=== PATIENT | female | born 1985 ===

== ENCOUNTER 2018-10-06 17:47 | Emergency (ER) | payer OTHER ==
--- NOTE | 2018-10-06 18:22 | ED ---
Abdominal Pain HPI - General Source: patient Mode of arrival: ambulatory Limitations: no limitations <Candice Gutierres - Last Filed: 10/06/18 20:02> <Jonathan Hoskins - Last Filed: 10/06/18 20:08> - General Chief Complaint: Abdominal Pain Stated Complaint: 15 week , bleeding and pain Time Seen by Provider: 10/06/18 18:04 - History of Present Illness Initial Comments: Patient is a 33-year-old female here with her family with complaints of vaginal bleeding and pain. Patient is 15 weeks . Patient does not speak Chinese, translation is coming from her [id number] and . Patient stat es she woke up this morning with some mild lower abdominal pain, cramping and also had some light vaginal bleeding. 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 Patient admits to mild nausea but states she has had nausea throughout this . Patient denies chest pain, shortness of breath, vomiting, fever, chills. Patient does not have an OB at this time as [place] No other complaints at this time. (Candice Gutierres) - Related Data Allergies Allergy/AdvReac Type Severity Reaction Status Date / Time No Known Allergies Allergy Verified 10/06/18 18:06 Review of Systems ROS Other: All systems not noted in ROS Statement are negative. <Candice Gutierres - Last Filed: 10/06/18 20:02> ROS Other: All systems not noted in ROS Statement are negative. <Jonathan Hoskins - Last Filed: 10/06/18 20:08> ROS Statement: Those systems with pertinent positive or pertinent negative responses have been documented in the HPI. Past Medical History Past Medical History: No Reported History History of Any Multi-Drug Resistant Organisms: None Reported Past Surgical History: No Surgical Hx Reported Past Psychological History: No Psychological Hx Reported Smoking Status: Never smoker Past Alcohol Use History: None Reported Past Drug Use History: None Reported <Candice Gutierres - Last Filed: 10/06/18 20:02> General Exam Limitations: no limitations <Candice Gutierres - Last Filed: 10/06/18 20:02> - General Exam Comments Initial Comments: GENERAL: Well-appearing, well-nourished and in no acute distress. HEAD: Atraumatic, normocephalic. EYES: Pupils equal round and reactive to light, extraocular movements intact, sclera anicteric, conjunctiva are normal. ENT: Nares patent, oropharynx clear without exudates. Moist mucous membranes. NECK: Normal range of motion, supple without lymphadenopathy or JVD. LUNGS: Breath sounds clear to auscultation bilaterally and equal. No wheezes rales or rhonchi. HEART: Regular rate and rhythm without murmurs, rubs or gallops. ABDOMEN: Mild tenderness suprapubic area. Soft, normoactive bowel sounds. No guarding, no rebound. No masses appreciated. No CVA tenderness. : Deferred EXTREMITIES: Normal range of motion, no pitting or edema. No clubbing or cy anosis. NEUROLOGICAL: Cranial nerves II through XII grossly intact. Normal speech, normal gait. PSYCH: Normal mood, normal affect. SKIN: Warm, Dry, normal turgor, no rashes or lesions noted. (Candice Gutierres) Course Vital Signs 10/06/18 18:06 Temperature 98.1 F Pulse Rate 82 Respiratory 18 Rate Blood Pressure 114/74 O2 Sat by Pulse 98 Oximetry Medical Decision Making - Lab Data Result diagrams: 10/06/18 18:29 10/06/18 18:29 <Candice Gutierres - Last Filed: 10/06/18 20:02> - Lab Data Result diagrams: 10/06/18 18:29 10/06/18 18:29 <Jonathan Hoskins - Last Filed: 10/06/18 20:08> - Medical Decision Making Patient is a 33-year-old female here with her and [id number] with complaints of vaginal bleeding and lower abdominal pain since this morning. Patient states she has 15 weeks . Patient does not speak Chinese therefore and [id number] translating. Patient does not have an OB right now as she [place]. Patient has history of 3 prior miscarriages and 1 son that is here with her today. Patient states she has been having nausea throughout her . Patient denies fever, chills, vomiting. On exam patient has lower abdominal tenderness mostly over suprapubic area. CBC, CMP are within normal limits. HCG Quant is only 7,164. Rh+. OB ultrasound reveals intrauterine demise at approximately 11 weeks gestation. No heart tones detected. Case was discussed with Dr. Hoskins who discussed case with Dr. Marquez. Patient will be given referral information will follow up with Dr. Marquez/Dr. Hart on Sunday. Return parameters were discussed with patient and the family and they verbalized understanding. Patient be discharged home. (Candice Gutierres) I personally spoke with Dr. Marquez who agrees with current management. Dr. Marquez confirmed that the patient is established with Dr. Hart, and she instructed that the patient call the office tomorrow for an expedited follow up appointment. the patient is HD stable, return parameters were discussed and understood. (Jonathan Hoskins) - Lab Data Lab Results 10/06/18 10/06/18 10/06/18 Range/Units 18:29 18:29 18:29 WBC 6.4 (3.8-10.6) k/uL RBC 3.80 (3.80-5.40) m/uL Hgb 11.7 (11.4-16.0) gm/dL Hct 33.5 L (34.0-46.0) % MCV 88.2 (80.0-100.0) fL MCH 30.6 (25.0-35.0) pg MCHC 34.7 (31.0-37.0) g/dL RDW 13.0 (11.5-15.5) % Plt Count 230 (150-450) k/uL Neutrophils % 63 % Lymphocytes % 30 % Monocytes % 4 % Eosinophils % 1 % Basophils % 0 % Neutrophils # 4.0 (1.3-7.7) k/uL Lymphocytes # 1.9 (1.0-4.8) k/uL Monocytes # 0.3 (0-1.0) k/uL Eosinophils # 0.1 (0-0.7) k/uL Basophils # 0.0 (0-0.2) k/uL Sodium 140 (137-145) mmol/L Potassium 4.1 (3.5-5.1) mmol/L Chloride 109 H (98-107) mmol/L Carbon Dioxide 21 L (22-30) mmol/L Anion Gap 10 mmol/L BUN 7 (7-17) mg/dL Creatinine 0.38 L (0.52-1.04) mg/dL Est GFR (CKD-EPI)AfAm >90 (>60 ml/min/1.73 sqM) Est GFR (CKD-EPI)NonAf >90 (>60 ml/min/1.73 sqM) Glucose 87 (74-99) mg/dL Calcium 9.7 (8.4-10.2) mg/dL Total Bilirubin 0.8 (0.2-1.3) mg/dL AST 34 (14-36) U/L ALT 29 (9-52) U/L Alkaline Phosphatase 27 L (38-126) U/L Total Protein 7.0 (6.3-8.2) g/dL Albumin 4.3 (3.5-5.0) g/dL HCG, Quant 7164.7 mIU/mL Blood Type A Positive Blood Type Recheck ABR ONLY Disposition Is patient prescribed a controlled substance at d/c from ED?: No <Candice Gutierres - Last Filed: 10/06/18 20:02> <Jonathan Hoskins - Last Filed: 10/06/18 20:08> Clinical Impression: demise, Abdominal cramping, Vaginal bleeding Disposition: HOME SELF-CARE Condition: Stable Instructions (If sedation given, give patient instructions): Miscarriage (ED) Additional Instructions: Please return to the Emergency Department if symptoms worsen or any other concerns. Follow up with INFORMATION TECHNOLOGY SECURITY MANAGER as discussed. Referrals: Tsering Hart DO [Doctor of Osteopathic Medicine] - 1-2 days Beata Marquez DO [Doctor of Osteopathic Medicine] - 1-2 days
[2018-10-06 18:38] LABS: Basophils % (A) 0 %; Eosinophils # (A) 0.1 k/uL (0-0.7); Eosinophils % (A) 1 %; HCT 33.5 % (34.0-46.0); HGB 11.7 gm/dL (11.4-16.0); Lymphocytes # (A) 1.9 k/uL (1.0-4.8); Lymphocytes % (A) 30 %; MCH 30.6 pg (25.0-35.0); MCHC 34.7 g/dL (31.0-37.0); MCV 88.2 fL (80.0-100.0); Mean Platelet Volume 7.3; Monocytes # (A) 0.3 k/uL (0-1.0); Monocytes % (A) 4 %; Neutrophils % (A) 63 %; Platelet Count 230 k/uL (150-450); WBC 6.4 k/uL (3.8-10.6)
[2018-10-06 18:47] LABS: ALT 29 U/L (9-52); AST 34 U/L (14-36); African American GFR (CKD) >90 (>60 ml/min/1.73 sqM); Albumin 4.3 g/dL (3.5-5.0); Alkaline Phosphatase 27 U/L (38-126); Anion Gap 10 mmol/L; Blood Urea Nitrogen 7 mg/dL (7-17); Calcium 9.7 mg/dL (8.4-10.2); Carbon Dioxide 21 mmol/L (22-30); Chloride 109 mmol/L (98-107); Glucose 87 mg/dL (74-99); Potassium 4.1 mmol/L (3.5-5.1); Sodium 140 mmol/L (137-145); Total Bilirubin 0.8 mg/dL (0.2-1.3)
[2018-10-06 19:03] LABS: HCG,Quantitative Serum 7164.7 mIU/mL
--- NOTE | 2018-10-06 19:09 | US ---
EXAMINATION TYPE: Transabdominal DATE OF EXAM: 10/06/2018 7:00 PM COMPARISON: NONE CLINICAL HISTORY: Pain, bleeding Pt states LLQ pain and light vaginal bleeding, pt states h/o miscar riage x 3 EXAM PERFORMED: Transabdominal (TA) EXAM MEASUREMENTS: GESTATIONAL AGE / DATING Physician Established: (14 weeks/1 days) EDC: 04/05/2019 Dates by LMP: Unknown Dates by First Scan: No prior Dates by Current Scan: (11 weeks/5 days) EDC: 04/22/2019 MATERNAL ANATOMY Uterus: 14.6 x 3.9 x 9.6 cm Right Ovary: 2.9 x 1.5 x 2.1 cm Left Ovary: 3.2 x 2.4 x 3.5 cm Post CDS / Adnexa: wnl Presence of free fluid: No Presence of corpus luteal cyst: Left Ovary= 2.0 x 1.9 x 1.9 cm Presence of subchorionic bleed: No GESTATION / SURVEY CRL: 4.2 cm (11 weeks/1 days) FL: 0.7 cm 12weeks/ 1 day Heart Rate: Not detected IUP: Demise No heart tones detected by color or pulsed doppler consistent with probable demise IMPRESSION: Intrauterine demise at approximately 11 weeks gestation.
[2018-10-06 20:16] LABS: Amorphous Sediment,Urine Rare /hpf; Appearance,Urine Cloudy (Clear); Bilirubin,Urine Negative (Negative); Blood,Urine Trace (Negative); Color,Urine Light Yellow; Glucose,Urine (UA) Negative (Negative); Ketones,Urine Negative (Negative); Leukocyte Esterase,Urine Negative (Negative); Mucus,Urine Rare /hpf; Nitrite,Urine Negative (Negative); PH, Urine 7.5 (5.0-8.0); Protein,Urine Negative (Negative); RBC,Urine 1 /hpf (0-5); Specific Gravity,Urine 1.008 (1.001-1.035); Squamous Epithelial Cell,Urine 1 /hpf (0-4); Urobilinogen,Urine <2.0 mg/dL (<2.0)
[2018-10-06 20:26] VITALS: BP 120/81; PULSE 69; RESP 16; TEMP 98
== END 2018-10-06 20:24 | disposition home or self-care (01) ==
LOC: EC 17:47
DX: O02.1 Missed abortion (principal); R11.0 Nausea; R10.30 Lower abdominal pain, unspecified; N93.9 Abnormal uterine and vaginal bleeding, unspecified
CPT/HCPCS: 36415; 76801; 80053; 81001; 84702; 85025; 86900; 86901; 99284

== ENCOUNTER 2018-10-11 06:08 | Day surgery (SDC) | payer OTHER ==
[~2018-10-11 06:08] MED LIST: DEXAMETHASONE SOD PHOSPHATE 10 MG/ML 1 ML VIAL IV ONE; HYDROmorphone 0.5 MG/0.5 ML SYRINGE IVP PRN; LACTATED RINGERS 1,000 ML IV SCH; MIDAZOLAM 2 MG/2 ML VIAL IV PRN; ONDANSETRON 4 MG/2 ML VIAL IVP ONE; Pre Op ABX Message 1 EACH MISC MISCELLANE ONE; SCOPOLAMINE 1.5MG/72HR PATCH TRANSDERM ONE
[2018-10-11] MEDS ORDERED: LIDOCAINE 1% 20 ML VIAL (10MG/ML) FOR IV START INTRADERMA ONE (06:30)
[2018-10-11 06:32] VITALS: RESP 16
--- NOTE | 2018-10-11 06:52 | P.HPOB ---
History of Present Illness H&P Date: 10/11/18 Chief Complaint: incomplete 33 year old presents for suction D&C with an 11 week incomplete . She has had some minor bleeding since last week and 2 ultrasounds confirmed no heart activity. Review of Systems All systems: negative Constitutional: Denies chills, Denies fever Eyes: denies blurred vision, denies pain Ears, nose, mouth and throat: Denies headache, Denies sore throat Cardiovascular: Denies chest pain, Denies shortness of breath Respiratory: Denies cough Gastrointestinal: Denies abdominal pain, Denies diarrhea, Denies nausea, Denies vomiting Genitourinary: Denies dysuria, Denies hematuria Musculoskeletal: Denies myalgias Integumentary: Denies pruritus, Denies rash Neurological: Denies numbness, Denies weakness Psychiatric: Denies anxiety, Denies depression Endocrine: Denies fatigue, Denies weight change Past Medical History Past Medical History: No Reported History Additional Past Medical History / Comment(s): OB history: first was a full term. Second was SAB at 8 weeks. Third was an SAB at 20 weeks. Fourth was an SAB at 6 weeks. This is her fifth . History of Any Multi-Drug Resistant Organisms: None Reported Past Surgical History: Section Past Anesthesia/Blood Transfusion Reactions: No Reported Reaction Smoking Status: Never smoker - Past Family History Mother Family Medical History: No Reported History Medications and Allergies Home Medications Medication Instructions Recorded Confirmed Type No Known Home Medications 10/10/18 10/10/18 History Allergies Allergy/AdvReac Type Severity Reaction Status Date / Time No Known Allergies Allergy Verified 10/10/18 11:28 Exam Osteopathic Statement: *. No significant issues noted on an osteopathic structural exam other than those noted in the History and Physical/Consult. Vital Signs Temp Pulse Resp BP Pulse Ox 10/11/18 06:31 98.3 F 81 16 99/56 100 Intake and Output 10/10/18 10/10/18 10/11/18 14:59 22:59 06:59 Other: Weight 0 g Heart: Regular rate and rhythm Lungs: Clear to auscultation bilaterally Abdomen: Soft, nontender Extremities: Negative Homans sign Assessment and Plan (1) Incomplete Current Visit: Yes Status: Acute Code(s): O03.4 - INCOMPLETE SPONTANEOUS WITHOUT COMPLICATION SNOMED Code(s): 454286075 Plan: 1. Suction D&C ; I will send the tissue off for chromosome analysis
[2018-10-11] MEDS ORDERED: KETOROLAC 30 MG/ML 1 ML VIAL ONE (07:15)
[2018-10-11] MEDS ORDERED: PROPOFOL 10 MG/ML 20 ML VIAL IV ONE (07:15)
[2018-10-11] MEDS ORDERED: fentaNYL (PF) 50 MCG/ML 2 ML AMP ONE (07:15)
[2018-10-11] MEDS ORDERED: LIDOCAINE 1% INJ 10MG/ML (20 ML MDV) ONE (07:15)
[2018-10-11 08:06] VITALS: TEMP 97.3
--- NOTE | 2018-10-11 08:12 | P.OP ---
Date of Procedure: 10/11/18 Preoperative Diagnosis: 1. incomplete Postoperative Diagnosis: 1. incomplete Procedure(s) Performed: suction D&C Anesthesia: MAC Surgeon: Tsering Hart Estimated Blood Loss (ml): 400 IV fluids (ml): 1,000 Urine output (ml): 100 Pathology: other (products of conception-sent for chormosome studies) Condition: stable Disposition: PACU Operative Findings: large amount of products of conception removed. Uterus 10-12 week size;retroverted Description of Procedure: Patient is taken the operating room where general anesthesia was obtained without difficulty. She is prepped and draped in normal sterile fashion dorsal lithotomy position, legs placed in the candycane stirrups. Bladder drained of all urine. Weighted speculum placed in the vagina and the anterior lip the cervix was grasped with a single-tooth tenaculum. The cervix was dilated to #12 Hegar dilator. The #12 curved suction curet was introduced into the uterus and passed several times to remove tissue and blood. There was a large piece of placental tissue at the opening that was removed with a ring forcep. Sharp curet was gently used to ensure all tissue had been removed. The contour of the uterus felt smooth. Suction curet was passed several more times to remove more blood. Pitocin was added to IV bag to also help with hemostasis. All instruments removed from the vagina. Patient tolerated procedure well, sponge and instrument counts correct 2. She was taken to recovery in stable condition.
[2018-10-11] MEDS ORDERED: LACTATED RINGERS IV ONE ×2 (08:13)
[2018-10-11] MEDS ORDERED: OXYTOCIN IV ONE ×2 (08:13)
[2018-10-11 10:02] VITALS: PULSE 64
[2018-10-11 10:59] VITALS: BP 113/70
== END 2018-10-11 11:02 | disposition home or self-care (01) ==
LOC: OR 06:08
PROVIDERS: ATTEND Obstetrics & Gynecology
DX: O02.1 Missed abortion (principal); Z87.59 Personal history of other complications of pregnancy, childbirth and the puerperium; Z79.82 Long term (current) use of aspirin
CPT/HCPCS: 59820; 88305; J1100; J2590; J2405; J2001; J3010; J1885; J2704

== ENCOUNTER → 2018-12-31 | Outpatient (CLI) | payer OTHER ==
[2018-12-31 16:49] LABS: Basophils % (A) 0 %; Eosinophils # (A) 0.1 k/uL (0-0.7); Eosinophils % (A) 1 %; HCT 36.4 % (34.0-46.0); HGB 12.4 gm/dL (11.4-16.0); Lymphocytes % (A) 35 %; MCH 30.5 pg (25.0-35.0); MCHC 33.9 g/dL (31.0-37.0); Mean Platelet Volume 7.4; Monocytes # (A) 0.2 k/uL (0-1.0); Monocytes % (A) 3 %; Neutrophils # (A) 3.2 k/uL (1.3-7.7); Neutrophils % (A) 57 %; Platelet Count 284 k/uL (150-450); RBC 4.05 m/uL (3.80-5.40); RDW 11.8 % (11.5-15.5); WBC 5.5 k/uL (3.8-10.6)
[2018-12-31 18:02] LABS: Amorphous Sediment,Urine Rare /hpf; Appearance,Urine Cloudy (Clear); Bacteria,Urine Moderate /hpf; Bilirubin,Urine Negative (Negative); Blood,Urine Small (Negative); Color,Urine Light Yellow; Glucose,Urine (UA) Negative (Negative); Ketones,Urine Negative (Negative); Leukocyte Esterase,Urine Small (Negative); Mucus,Urine Occasional /hpf; Nitrite,Urine Negative (Negative); PH, Urine 5.5 (5.0-8.0); Protein,Urine Negative (Negative); RBC,Urine 2 /hpf (0-5); Specific Gravity,Urine 1.006 (1.001-1.035); Sperm,Urine Rare /hpf; Squamous Epithelial Cell,Urine 14 /hpf (0-4); Urobilinogen,Urine <2.0 mg/dL (<2.0); WBC,Urine 4 /hpf (0-5)
[2018-12-31 20:57] LABS: Erythrocyte Sedimentation Rate 10 mm/hr (0-20)
[2019-01-01 00:17] LABS: ALT 22 U/L (8-44); AST 26 U/L (13-35); African American GFR (CKD) 136.9 (60.0-200.0); Alkaline Phosphatase 41 U/L (41-126); C Reactive Protein <0.4 mg/dL (0.0-0.8); Calcium 9.6 mg/dL (8.7-10.3); Carbon Dioxide 25.3 mmol/L (21.6-31.8); Chloride 107 mmol/L (96-109); Chol/HDL Ratio 3.17; Cholesterol 200 mg/dL (0-200); Creatine Kinase 52 U/L (26-186); Glucose 89 mg/dL (70-110); Phosphorus 3.1 mg/dL (2.4-5.1); Potassium 4.2 mmol/L (3.5-5.5); Sodium 139 mmol/L (135-145); Total Protein 6.6 g/dL (6.2-8.2); Triglycerides <50.0 mg/dL (0.0-149.0)
[2019-01-01 01:02] LABS: DNA Double-Stranded NEGATIVE (NEGATIVE)
[2019-01-01 01:12] LABS: Hemoglobin A1C 4.8 % (4.0-6.0)
[2019-01-01 01:46] LABS: Rheumatoid Factor 7 IU/mL (0-15)
[2019-01-01 01:58] LABS: Vitamin D 25 Hydroxy 8.6 ng/mL (30.0-100.0)
[2019-01-01 02:15] LABS: Hepatitis B Surface Antigen Non-Reactive (Non-Reactive); Hepatitis C IgG Antibody Non-Reactive (Non-Reactive)
[2019-01-01 02:16] LABS: Hepatitis A Antibody IgM Non-Reactive (Non-Reactive); Hepatitis B Core IgM Non-Reactive (Non-Reactive)
== END | disposition home or self-care (01) ==
LOC: LABWHC1 16:14
PROVIDERS: ATTEND Internal Medicine
DX: O03.9 Complete or unspecified spontaneous abortion without complication (principal); D64.9 Anemia, unspecified; E78.5 Hyperlipidemia, unspecified; D89.89 Other specified disorders involving the immune mechanism, not elsewhere classified
CPT/HCPCS: 36415; 80053; 80061; 80074; 81001; 82306; 82550; 82607; 83036; 83735; 84100; 84439; 84443; 85025; 85652; 86038; 86140; 86225; 86431; 87338

== ENCOUNTER → 2019-01-16 | Outpatient (CLI) | payer OTHER ==
--- NOTE | 2019-01-16 09:42 | XR ---
EXAMINATION TYPE: XR thoracic spine complete DATE OF EXAM: 01/16/2019 COMPARISON: NONE HISTORY: Pain Alignment is anatomic. There is no compression deformities. Vertebral body height and disc interspa chuck are maintained. IMPRESSION: 1. No acute abnormality.
== END | disposition home or self-care (01) ==
LOC: RADXRMAIN 08:43
PROVIDERS: ATTEND Internal Medicine
DX: M54.6 Pain in thoracic spine (principal); I95.9 Hypotension, unspecified; N94.6 Dysmenorrhea, unspecified
CPT/HCPCS: 72072

== ENCOUNTER → 2019-02-06 | Outpatient (CLI) | payer OTHER | END | disposition home or self-care (01) | LOC: LABWHC1 08:59 | PROVIDERS: ATTEND Internal Medicine | DX: O03.9 Complete or unspecified spontaneous abortion without complication (principal) | CPT/HCPCS: 86900; 86901; 87338 ==

== ENCOUNTER → 2019-03-21 | Outpatient (CLI) | payer OTHER ==
[2019-03-21 23:07] LABS: Luteinizing Hormone 4.8 mIU/mL; Prolactin 6.5 ng/mL (2.8-29.2)
[2019-03-24 04:28] LABS: Herpes simplex IgG II Ab 0.25 (< or = 0.90)
[2019-03-24 04:44] LABS: Herpes simplex I and/or II IgM 0.26 INDEX (<=0.90); Toxoplasma Antibody (IgM) <3.0 AU/mL (<8.0)
[2019-03-24 11:25] LABS: Act Protein C Resist Interp NEG
[2019-03-24 11:28] LABS: Anti-Thrombin III Activity 73 % (79-109)
[2019-03-24 11:30] LABS: Protein C (Activity) 99 % (71-138)
== END | disposition home or self-care (01) ==
LOC: LABWHC1 15:40
PROVIDERS: ATTEND Internal Medicine
DX: Z13.0 Encounter for screening for diseases of the blood and blood-forming organs and certain disorders involving the immune mechanism (principal); N97.9 Female infertility, unspecified; Z31.41 Encounter for fertility testing; Z87.59 Personal history of other complications of pregnancy, childbirth and the puerperium; Z13.228 Encounter for screening for other metabolic disorders
CPT/HCPCS: 36415; 81240; 83001; 83002; 83090; 84146; 85300; 85303; 85306; 85307; 86644; 86645; 86694; 86695; 86696; 86762; 86777; 86778

== ENCOUNTER → 2019-04-18 | Outpatient (CLI) | payer OTHER | END | disposition home or self-care (01) | LOC: LABWHC1 16:33 | PROVIDERS: ATTEND Internal Medicine | DX: Z13.0 Encounter for screening for diseases of the blood and blood-forming organs and certain disorders involving the immune mechanism (principal) | CPT/HCPCS: 36415; 85301 ==

== ENCOUNTER 2019-09-12 18:43 | Emergency (ER) | payer OTHER ==
[2019-09-12 19:06] VITALS: RESP 18
[2019-09-12 20:28] LABS: Basophils % (A) 0 %; Eosinophils # (A) 0.1 k/uL (0-0.7); Eosinophils % (A) 1 %; HCT 35.9 % (34.0-46.0); HGB 12.4 gm/dL (11.4-16.0); Lymphocytes # (A) 1.9 k/uL (1.0-4.8); Lymphocytes % (A) 20 %; MCH 31.4 pg (25.0-35.0); MCHC 34.5 g/dL (31.0-37.0); MCV 91.1 fL (80.0-100.0); Mean Platelet Volume 8.1; Monocytes # (A) 0.3 k/uL (0-1.0); Monocytes % (A) 3 %; Neutrophils # (A) 7.2 k/uL (1.3-7.7); Neutrophils % (A) 75 %; Platelet Count 250 k/uL (150-450); RBC 3.94 m/uL (3.80-5.40); WBC 9.7 k/uL (3.8-10.6)
[2019-09-12 20:30] LABS: ALT 22 U/L (4-34); AST 28 U/L (14-36); African American GFR (CKD) >90 (>60 ml/min/1.73 sqM); Albumin 4.4 g/dL (3.5-5.0); Alkaline Phosphatase 40 U/L (38-126); Anion Gap 7 mmol/L; Blood Urea Nitrogen 9 mg/dL (7-17); Calcium 9.6 mg/dL (8.4-10.2); Carbon Dioxide 23 mmol/L (22-30); Chloride 105 mmol/L (98-107); Glucose 90 mg/dL (74-99); Non-African American GFR(CKD) >90 (>60 ml/min/1.73 sqM); Potassium 4.3 mmol/L (3.5-5.1); Sodium 135 mmol/L (137-145); Total Bilirubin 0.6 mg/dL (0.2-1.3); Total Protein 7.3 g/dL (6.3-8.2)
[2019-09-12 20:51] LABS: Appearance,Urine Cloudy (Clear); Bacteria,Urine Many /hpf; Bilirubin,Urine Negative (Negative); Blood,Urine Small (Negative); Color,Urine Light Yellow; Glucose,Urine (UA) Negative (Negative); Ketones,Urine 1+ (Negative); Leukocyte Esterase,Urine Trace (Negative); Mucus,Urine Rare /hpf; Nitrite,Urine Negative (Negative); PH, Urine 5.5 (5.0-8.0); Protein,Urine Negative (Negative); RBC,Urine 4 /hpf (0-5); Specific Gravity,Urine 1.007 (1.001-1.035); Squamous Epithelial Cell,Urine 4 /hpf (0-4); Urobilinogen,Urine <2.0 mg/dL (<2.0); WBC,Urine 6 /hpf (0-5)
--- NOTE | 2019-09-12 20:51 | US ---
EXAMINATION TYPE: Transabdominal DATE OF EXAM: 09/12/2019 8:35 PM COMPARISON: NONE CLINICAL HISTORY: pain. No bleeding, back pain EXAM PERFORMED: Transabdominal (TA) EXAM MEASUREMENTS: GESTATIONAL AGE / DATING Physician Established: Not yet established Dates by LMP: (9 weeks/4 days) EDC: 04/12/20 Dates by First Scan: No previous this is first scan Dates by Current Scan for: (9 weeks/3 days) EDC: 04/13/20 MATERNAL ANATOMY Uterus: 9.6 x 6.3 x 6.3cm Right Ovary: 3.1 x 1.6 x 1.6cm Left Ovary: 3.9 x 2.3 x 2.3cm Post CDS / Adnexa: trace amount of free fluid posterior cul-de-sac Presence of free fluid: yes Presence of corpus luteal cyst: yes, hypoechoic area left ovary = 1.9 x 1.8 x 1.8cm and 1.9 x 1.2 x 1.2cm right ovary GESTATION / SURVEY CRL: 2.6cm (9 weeks/3 days) Yolk Sac (normal less than 6mm): 0.3cm Heart Rate: 168 bpm Rhythm: Normal IUP: Viable IUP Date of LMP: 07/07/19 Beta HcG (if available): Not available at this time Single viable IUP 9wks/3days with ASHANTI of 04/13/20. Trace free fluid posterior cul-de-sac. Hypoechoic area bilateral ovaries IMPRESSION: The ultrasound gestational age is 9 weeks and 3 days. No complicating process seen.
[2019-09-12] MEDS ORDERED: CEPHALEXIN 500MG STARTER PACK 4 CAP BTL PO STA (21:44)
--- NOTE | 2019-09-12 21:45 | ED ---
General Adult HPI - General Chief complaint: Recheck/Abnormal Lab/Rx Stated complaint: 8-10 weeks , worried about baby Time Seen by Provider: 09/12/19 19:27 Source: patient, RN notes reviewed, old records reviewed Mode of arrival: ambulatory Limitations: language barrier - History of Present Illness Initial comments: 34 old female patient presents ED for evaluation. Patient reports that she had one live or since then has had 4 miscarriages. She states that she is now again approximately 9 weeks and is following up in [facility] however she feels as if last few days her abdomen has not been as large as it was before. She is concerned about the baby. She denies any abdominal pain or vaginal bleeding. She denies any other complaints. Pt states that she is taking previtamins. Systemic: Pt denies fatigue, fever/chills, rash. Pt denies weakness, night sweats, weight loss. Neuro: Pt denies headache, visual disturbances, syncope or pre-syncope. HEENT: Pt denies ocular discharge or irritation, otalgia, rhinorrhea, phar yngitis or notable lymphadenopathy. Cardiopulmonary: Pt denies chest pain, SOB, heart palpitations, dyspnea on exertion. Abdominal/GI: Pt denies abdominal pain, n/v/d. : Pt denies dysuria, burning w/ urination, frequency/urgency. Denies new onset urinary or bowel incontinence. MSK: Pt denies myalgia, loss of strength or function in extremities. Neuro: Pt denies new onset weakness, paresthesias. - Related Data Previous Rx's Medication Instructions Recorded Ibuprofen [Motrin] 600 mg PO Q6HR PRN #30 tab 10/11/18 Cephalexin [Keflex] 500 mg PO Q12HR 7 Days #14 cap 09/12/19 Allergies Allergy/AdvReac Type Severity Reaction Status Date / Time No Known Allergies Allergy Verified 09/12/19 19:06 Review of Systems ROS Statement: Those systems with pertinent positive or pertinent negative responses have been documented in the HPI. ROS Other: All systems not noted in ROS Statement are negative. Past Medical History Past Medical History: No Reported History Additional Past Medical History / Comment(s): OB history: first was a full term. Second was SAB at 8 weeks. Third was an SAB at 20 weeks. Fourth was an SAB at 6 weeks. This is her fifth . History of Any Multi-Drug Resistant Organisms: None Reported Past Surgical History: Section Past Anesthesia/Blood Transfusion Reactions: No Reported Reaction Past Psychological History: No Psychological Hx Reported Smoking Status: Never smoker - Past Family History Mother Family Medical History: No Reported History General Exam - General Exam Comments Initial Comments: Constitutional: NAD, AOX3, Pt has pleasant affect. HEENT: NC/AT, trachea midline, neck supple. External ears appear normal, without discharge. Mucous membranes moist. Eyes PERRLA, EOM intact. There is no scleral icterus. No pallor noted. Cardiopulmonary: RRR, no murmurs, rubs or gallops, no JVD noted. Lungs CTAB in anterior and posterior morgan. No peripheral edema. Abdominal exam: Abdomen soft and non-distended. Abdomen non-tender to palpation in all 4 quadrants. Bowel sounds active in LLQ. No hepatosplenomegaly. No ecchymosis Neuro: CN II-XII grossly intact. No nuchal rigidity. No raccon eyes, no palomares sign. No cervical spinal tenderness. MSK: Full active ROM in upper and lower extremities, 5/5 stregnth. Limitations: language barrier Course Vital Signs 09/12/19 19:00 Temperature 98.1 F Pulse Rate 76 Respiratory 18 Rate Blood Pressure 101/67 O2 Sat by Pulse 100 Oximetry Medical Decision Making - Medical Decision Making 34 old female patient presents ED for evaluation. Patient reports that she had one live or since then has had 4 miscarriages. She states that she is now again approximately 9 weeks and is following up in [facility] however she feels as if last few days her abdomen has not been as large as it was before. She is concerned about the baby. She denies any abdominal pain or vaginal bleeding. She denies any other complaints. Patient also had a stable, afebrile. Physical exam dentist acute pathology. Labs investigations were obtained CBC CMP is noncompressive. Blood type from 2019 is A+. UA doesn't display 1+ ketones, 6 white blood cells 4 red blood cells 4 squamous epithelial cells many bacteria. Patient is not complaining of any urinary changes however she'll be treated with Keflex for asymptomatic bacteriuria. Ultrasound displayed gestational age 9 weeks 3 days and no complicating process. Patient discharged will follow up with primary care provider and will return to ER if condition worsens. Case discussed with Dr. Ruelas. - Lab Data Result diagrams: 09/12/19 20:00 09/12/19 20:00 Lab Results 09/12/19 09/12/19 09/12/19 Range/Units 20:00 20:00 20:00 WBC 9.7 (3.8-10.6) k/uL RBC 3.94 (3.80-5.40) m/uL Hgb 12.4 (11.4-16.0) gm/dL Hct 35.9 (34.0-46.0) % MCV 91.1 (80.0-100.0) fL MCH 31.4 (25.0-35.0) pg MCHC 34.5 (31.0-37.0) g/dL RDW 12.0 (11.5-15.5) % Plt Count 250 (150-450) k/uL Neutrophils % 75 % Lymphocytes % 20 % Monocytes % 3 % Eosinophils % 1 % Basophils % 0 % Neutrophils # 7.2 (1.3-7.7) k/uL Lymphocytes # 1.9 (1.0-4.8) k/uL Monocytes # 0.3 (0-1.0) k/uL Eosinophils # 0.1 (0-0.7) k/uL Basophils # 0.0 (0-0.2) k/uL Sodium 135 L (137-145) mmol/L Potassium 4.3 (3.5-5.1) mmol/L Chloride 105 (98-107) mmol/L Carbon Dioxide 23 (22-30) mmol/L Anion Gap 7 mmol/L BUN 9 (7-17) mg/dL Creatinine 0.44 L (0.52-1.04) mg/dL Est GFR (CKD-EPI)AfAm >90 (>60 ml/min/1.73 sqM) Est GFR (CKD-EPI)NonAf >90 (>60 ml/min/1.73 sqM) Glucose 90 (74-99) mg/dL Calcium 9.6 (8.4-10.2) mg/dL Total Bilirubin 0.6 (0.2-1.3) mg/dL AST 28 (14-36) U/L ALT 22 (4-34) U/L Alkaline Phosphatase 40 (38-126) U/L Total Protein 7.3 (6.3-8.2) g/dL Albumin 4.4 (3.5-5.0) g/dL Urine Color Light Yellow Urine Appearance Cloudy H (Clear) Urine pH 5.5 (5.0-8.0) Ur Specific [place] 1.007 (1.001-1.035) Urine Protein Negative (Negative) Urine Glucose (UA) Negative (Negative) Urine Ketones 1+ H (Negative) Urine Blood Small H (Negative) Urine Nitrite Negative (Negative) Urine Bilirubin Negative (Negative) Urine Urobilinogen <2.0 (<2.0) mg/dL Ur Leukocyte Esterase Trace H (Negative) Urine RBC 4 (0-5) /hpf Urine WBC 6 H (0-5) /hpf Ur Squamous Epith Cells 4 (0-4) /hpf Urine Bacteria Many H (None) /hpf Urine Mucus Rare H (None) /hpf Disposition Clinical Impression: Asymptomatic bacteriuria during Disposition: HOME SELF-CARE Condition: Stable Instructions (If sedation given, give patient instructions): (ED) Additional Instructions: Take antibiotics as directed. Follow up with primary care provider and telescope operator tomorrow. Return to ER if condition worsens in any way. Prescriptions: Cephalexin [Keflex] 500 mg PO Q12HR 7 Days #14 cap Is patient prescribed a controlled substance at d/c from ED?: No Referrals: Choco Isbell MD [Primary Care Provider] - 1-2 days
[2019-09-12 21:52] VITALS: BP 105/62; PULSE 78; TEMP 97.9
[2019-09-15 13:58] LABS: N. gonorrhoeae,PCR Negative (Neg,Equiv); Neisseria Source Urine
== END 2019-09-12 21:52 | disposition home or self-care (01) ==
LOC: EC 18:43
DX: O98.811 Other maternal infectious and parasitic diseases complicating pregnancy, first trimester (principal); A49.9 Bacterial infection, unspecified; Z3A.09 9 weeks gestation of pregnancy; Z87.59 Personal history of other complications of pregnancy, childbirth and the puerperium
CPT/HCPCS: 36415; 76801; 80053; 81001; 84702; 85025; 87591; 99284

== ENCOUNTER 2019-12-03 21:03 | Outpatient (CLI) | payer OTHER ==
[2019-12-03 22:18] VITALS: BP 105/61; PULSE 85; RESP 16; TEMP 98
--- NOTE | 2019-12-05 08:05 | P.MSEPDOC ---
Presenting Problems - Arrival Data Date of Arrival on Unit: 12/03/19 Time of Arrival on Unit: 21:03 Mode of Transport: Ambulatory - Complaint OB-Reason for Admission/Chief Complaint: Pain Comment: Patient presents to triage with complaints of abdominal pain that started. yesterday. Its in her lower abdomen, constant, and feels like its stretching. She waited until tonight to come to triage because she was waiting to see if. the pain would reside on its own. Patient speaks limited Chinese Medical History - Information : 5 Para: 1 Term: 1 : 0 Abortions: Spontaneous or Elective: 4 Number of Living Children: 1 - Gestational Age Gestational Age by ASHANTI (wks/days): 22 Weeks and 5 Days Review of Systems - Review of Systems Constitutional: No problems Breast: No problems ENT: No problems Cardiovascular: No problems Respiratory: No problems Gastrointestinal: No problems Genitourinary: No problems Musculoskeletal: No problems Neurological: No problems Skin: No problems Vital Signs - Temperature Temperature: 98.0 F Temperature Source: Temporal Artery Scan - Pulse Right Brachial Pulse Rate: 85 Pulse Assessment Method: Automatic Cuff - Respirations Respiratory Rate: 16 Oxygen Delivery Method: Room Air - Blood Pressure Right Arm Blood Pressure: 105/61 Blood Pressure Mean: 75 Blood Pressure Source: Automatic Cuff Medical Screen Scoring (Pre) - Cervical Exam Dilation: 0 cm = 0 Membranes: Intact - Uterine Contractions Frequency: N/A Duration: N/A Intensity: N/A - Maternal Vital Signs Maternal Temperature: N/A Signs of Preeclampsia: N/A Maternal Respirations: N/A - Maternal Trauma Maternal Trauma: N/A - Assessment - Baby A Baseline FHR: 140 - Total Score - Baby A Total Score - Baby A: 0 - Total Score - Baby B Total Score - Baby B: 0 - Total Score - Baby C Total Score - Baby C: 0 - Level of Risk - Baby A Level of Risk - Baby A: Low (0-5) - Level of Risk - Baby B Level of Risk - Baby B: Low (0-5) - Level of Risk - Baby C Level of Risk - Baby C: Low (0-5) Physician Notification (Pre) - Physician Notified Physician Notified Date: 12/03/19 Physician Notified Time: 21:40 New Order Received: Yes - Notification Comment Comment: RN called and spoke with Dr. Sabillon. Maternal and report given. RN stated. that patient was having abdominal pain since yesterday but waited until today to see if. the pain would resolve on its own. Patient stated that she did not call her own doctor. because he would not see her "due to covid'. Patient reported that the pain is a. stretching pain along her lower abdomen into her pevis. heart tones were. auscultated 140-150, no contractionsnoted per TOCO, patients vital signs are WNL. Patient denies bleeding, leaking. fluid and states she has not been able to feel the baby move yet during this . Patient states she has seen her doctor every two weeks and knows that that the baby is a boy. Dr. Sabillon asked me to check the patients cervix, which was closed and thick. Dr. Sabillon states the patient can be discharged with instructions to follow up with her own. within the week Disposition - Disposition OB Disposition: Discharge to home, Written follow up instructions reviewed Discharge Date: 12/03/19 Discharge Time: 22:16 I agree with the RN Medical Screening Exam: Yes Risk & Benefit of care provided described in d/c instruction: Yes Risk & Benefit of Care Comment: Follow up with check and transfer beader within the next week Diagnosis: FALSE LABOR BEFORE 37 COMPLETED WEEKS OF GEST, SECOND TRI
== END 2019-12-03 22:16 | disposition home or self-care (01) ==
LOC: FBPOP 21:03
PROVIDERS: ATTEND Obstetrics & Gynecology
DX: O47.02 False labor before 37 completed weeks of gestation, second trimester (principal); Z3A.22 22 weeks gestation of pregnancy
CPT/HCPCS: 99213

== ENCOUNTER 2019-12-13 16:21 | Emergency (ER) | payer OTHER ==
[2019-12-13 16:31] VITALS: BP 105/70; PULSE 102; TEMP 99.3
[2019-12-13] MEDS ORDERED: ACETAMINOPHEN TAB 325 MG TAB PO STA (16:40)
--- NOTE | 2019-12-13 17:16 | XR ---
EXAMINATION TYPE: XR chest 1V portable DATE OF EXAM: 12/13/2019 COMPARISON: NONE HISTORY: Cough TECHNIQUE: FINDINGS: Heart and mediastinum are normal. Lungs are clear. Diaphragm is normal. Bony thorax appears normal. IMPRESSION: Normal chest. Normal heart.
[2019-12-13 17:18] VITALS: RESP 16
--- NOTE | 2019-12-13 17:38 | ED ---
General Adult HPI - General Chief complaint: Upper Respiratory Infection Stated complaint: 6mos preg, vomiting, fever Time Seen by Provider: 12/13/19 16:31 Source: patient, family, RN notes reviewed Mode of arrival: ambulatory Limitations: no limitations - History of Present Illness Initial comments: 34-year-old female currently 24 weeks presents to the emergency room for a chief complaint of cough. Patient has had a cough for the past 5 days. She also has a runny nose and congestion. Patient was still mildly sore throat, denies any difficulty swallowing. Denies headaches or neck pain. Denies any chest pain or shortness of breath associated with this. Patient does not have any abdominal pain, vaginal bleeding. Patient is receiving care.Patient has no other complaints at this time including shortness of breath, chest pain, abdominal pain, nausea or vomiting, headache, or visual changes. - Related Data Home Medications Medication Instructions Recorded Confirmed Aspirin [Adult Low Dose Aspirin EC] 1 tab PO DAILY 12/03/19 12/03/19 Ferrous Sulfate [Iron] 1 tab PO DAILY 12/03/19 12/03/19 Folic Acid 1 tab PO DAILY 12/03/19 12/03/19 Pnv No.95/Ferrous Fum/Folic AC 1 each PO 12/03/19 [ Multivitamin Tablet] Progesterone, Micronized 1 cap VAGINAL HS 12/03/19 12/03/19 [Progesterone] Allergies Allergy/AdvReac Type Severity Reaction Status Date / Time No Known Allergies Allergy Verified 12/13/19 16:31 Review of Systems ROS Statement: Those systems with pertinent positive or pertinent negative responses have been documented in the HPI. ROS Other: All systems not noted in ROS Statement are negative. Past Medical History Past Medical History: No Reported History Additional Past Medical History / Comment(s): OB history: first was a full term. Second was SAB at 8 weeks. Third was an SAB at 20 weeks. Fourth was an SAB at 6 weeks. This is her fifth . History of Any Multi-Drug Resistant Organisms: None Reported Past Surgical History: Section Past Anesthesia/Blood Transfusion Reactions: No Reported Reaction Past Psychological History: No Psychological Hx Reported Smoking Status: Never smoker Past Alcohol Use History: None Reported Past Drug Use History: None Reported - Past Family History Mother Family Medical History: No Reported History General Exam Limitations: no limitations General appearance: alert, in no apparent distress Head exam: Present: atraumatic, normocephalic, normal inspection Eye exam: Present: normal appearance, PERRL, EOMI. Absent: scleral icterus, conjunctival injection, periorbital swelling ENT exam: Present: normal exam, normal oropharynx (non erythematous, no tonsillar exudates noted bilaterally), mucous membranes moist, TM's normal bilaterally, normal external ear exam Neck exam: Present: normal inspection, full ROM. Absent: tenderness, meningismus Respiratory exam: Present: normal lung sounds bilaterally. Absent: respiratory distress, wheezes, rales, rhonchi, stridor Cardiovascular Exam: Present: regular rate, normal rhythm, normal heart sounds. Absent: systolic murmur, diastolic murmur, rubs, gallop, clicks GI/Abdominal exam: Present: soft, normal bowel sounds. Absent: distended, tenderness, guarding, rebound, rigid Neurological exam: Present: alert Course Vital Signs 12/13/19 12/13/19 16:26 17:00 Temperature 99.3 F Pulse Rate 102 H Respiratory 18 16 Rate Blood Pressure 105/70 O2 Sat by Pulse 97 Oximetry Medical Decision Making - Medical Decision Making Vitals are stable. Patient is well-appearing, no abdominal pain. Patient is complaining somewhat of a sore throat but will not allow strep swab. Chest x- ray was obtained with a shield, is negative for pneumonia. Patient does not have chest pain or shortness of breath. At this time recommend she follow up with her PARKING ATTENDANT. She can take Tylenol for fever or pain. If she has any worsening symptoms she should return here to the emergency room which she is agreeable to. Disposition Clinical Impression: Cough Disposition: HOME SELF-CARE Condition: Good Instructions (If sedation given, give patient instructions): Upper Respiratory Infection (ED) Additional Instructions: Please take Tylenol and drink on any of fluids. Follow-up with your doctor on Sunday. Follow-up on coronavirus results in the next 2-3 days. Return to the emergency room for any worsening symptoms. Is patient prescribed a controlled substance at d/c from ED?: No Referrals: None,Stated [Primary Care Provider] - 1-2 days Radha Sabillon MD [STAFF PHYSICIAN] - 1-2 days Time of Disposition: 17:38
== END 2019-12-13 17:46 | disposition home or self-care (01) ==
LOC: EC 16:21
DX: O99.512 Diseases of the respiratory system complicating pregnancy, second trimester (principal); R05 Cough; R09.81 Nasal congestion; Z79.82 Long term (current) use of aspirin; Z79.899 Other long term (current) drug therapy; Z79.890 Hormone replacement therapy; Z20.828 Contact with and (suspected) exposure to other viral communicable diseases; Z3A.24 24 weeks gestation of pregnancy
CPT/HCPCS: 71045; 99283; U0003

== ENCOUNTER → 2019-12-30 | Outpatient (CLI) | payer OTHER ==
[2019-12-30 12:44] LABS: HCT 31.1 % (34.0-46.0); HGB 10.5 gm/dL (11.4-16.0); MCH 31.1 pg (25.0-35.0); MCHC 33.6 g/dL (31.0-37.0); MCV 92.6 fL (80.0-100.0); Mean Platelet Volume 7.7; Platelet Count 221 k/uL (150-450); RBC 3.36 m/uL (3.80-5.40); RDW 12.5 % (11.5-15.5); WBC 8.8 k/uL (3.8-10.6)
[2019-12-30 21:24] LABS: Albumin 3.8 g/dL (3.80-4.90); Albumin/Globulin Ratio 1.9 (1.60-3.17); Bilirubin, Conjugated 0.2 mg/dL (0.20-0.40); Bilirubin,Unconjugated 0.4 mg/dL; Total Bilirubin 0.6 mg/dL (0.3-1.2); Total Protein 5.8 g/dL (6.2-8.2)
== END | disposition home or self-care (01) ==
LOC: LABWHC1 11:14
PROVIDERS: ATTEND Obstetrics & Gynecology
DX: O09.522 Supervision of elderly multigravida, second trimester (principal)
CPT/HCPCS: 36415; 80076; 82239; 85027

== ENCOUNTER → 2020-01-12 | Outpatient (CLI) | payer OTHER | END | disposition home or self-care (01) | LOC: LABWHC1 14:52 | PROVIDERS: ATTEND Obstetrics & Gynecology | DX: Z53.9 Procedure and treatment not carried out, unspecified reason (principal) ==

== ENCOUNTER → 2020-01-13 | Outpatient (CLI) | payer OTHER ==
[2020-01-13 14:40] LABS: HCT 31.9 % (34.0-46.0); HGB 10.8 gm/dL (11.4-16.0); MCH 32.1 pg (25.0-35.0); MCHC 33.9 g/dL (31.0-37.0); MCV 94.6 fL (80.0-100.0); Mean Platelet Volume 8.2; Platelet Count 212 k/uL (150-450); RBC 3.37 m/uL (3.80-5.40); RDW 12.5 % (11.5-15.5); WBC 9.4 k/uL (3.8-10.6)
[2020-01-13 21:01] LABS: HIV 2 AB Non-Reactive (Non-Reactive); HIV AB P24 Non-Reactive (Non-Reactive); HIV P24 AG Non-Reactive (Non-Reactive)
[2020-01-13 22:56] LABS: Hepatitis B Surface Antigen Non-Reactive (Non-Reactive); Hepatitis C IgG Antibody Non-Reactive (Non-Reactive)
== END | disposition home or self-care (01) ==
LOC: LABWHC1 12:54
PROVIDERS: ATTEND Obstetrics & Gynecology
DX: O09.523 Supervision of elderly multigravida, third trimester (principal)
CPT/HCPCS: 36415; 82950; 85027; 86780; 86803; 87340; 87390

== ENCOUNTER → 2020-01-22 | Outpatient (CLI) | payer OTHER ==
[2020-01-22 14:16] LABS: Glucose 3 Hour, Gest 113 mg/dL
== END | disposition home or self-care (01) ==
LOC: LABWHC1 08:20
PROVIDERS: ATTEND Obstetrics & Gynecology
DX: O09.523 Supervision of elderly multigravida, third trimester (principal)
CPT/HCPCS: 36415; 82951; 82952

== ENCOUNTER → 2020-03-04 | Outpatient (CLI) | payer OTHER ==
[2020-03-04 13:11] LABS: MCH 30.9 pg (25.0-35.0); MCHC 33.5 g/dL (31.0-37.0); MCV 92.1 fL (80.0-100.0); Mean Platelet Volume 8.8; Platelet Count 193 k/uL (150-450); RBC 3.58 m/uL (3.80-5.40); RDW 13.3 % (11.5-15.5); WBC 6.5 k/uL (3.8-10.6)
[2020-03-04 22:52] LABS: Hemoglobin A1C 4.7 % (4.0-6.0)
== END | disposition home or self-care (01) ==
LOC: LABWHC1 12:15
PROVIDERS: ATTEND Obstetrics & Gynecology
DX: O24.410 Gestational diabetes mellitus in pregnancy, diet controlled (principal)
CPT/HCPCS: 36415; 82947; 83036; 85027

== ENCOUNTER → 2020-09-11 | Outpatient (CLI) | payer OTHER ==
[2020-09-11 16:26] LABS: Basophils # (A) 0.02 X 10*3/uL (0.00-0.10); Basophils % (A) 0.3 %; Eosinophils # (A) 0.06 X 10*3/uL (0.04-0.35); HCT 36.2 % (37.2-46.3); Lymphocytes # (A) 2.03 X 10*3/uL (0.90-5.00); Lymphocytes % (A) 35.1 %; MCHC 33.1 g/dL (32.0-37.0); MCV 90.5 fL (80.0-97.0); Mean Platelet Volume 10.5 fL (9.5-12.2); Monocytes # (A) 0.32 X 10*3/uL (0.20-1.00); Monocytes % (A) 5.5 %; Neutrophils # (A) 3.35 X 10*3/uL (1.80-7.70); Neutrophils % (A) 57.9 %; Platelet Count 340 X 10*3/uL (140-440); RDW 11.9 % (11.5-14.5); WBC 5.79 X 10*3/uL (4.50-10.00)
[2020-09-11 16:42] LABS: Ferritin 44.4 ng/mL (10.0-291.0)
[2020-09-11 16:58] LABS: % Iron Saturation 16.09 (12.00-45.00); ALT 16 U/L (8-44); AST 20 U/L (13-35); Alkaline Phosphatase 52 U/L (41-126); BUN/Creat Ratio 28.33 Ratio (12.00-20.00); C Reactive Protein <0.4 mg/dL (0.0-0.8); Calcium 9.6 mg/dL (8.7-10.3); Carbon Dioxide 28.2 mmol/L (21.6-31.8); Chloride 105 mmol/L (96-109); Chol/HDL Ratio 3.35; Cholesterol 218 mg/dL (0-200); Folate, Serum >24.0 ng/mL; Globulin 2.5 g/dL (1.6-3.3); Glucose 89 mg/dL (70-110); Iron 56 ug/dL (50-170); Non-African American GFR(CKD) 116.4 (60.0-200.0); Sodium 141 mmol/L (135-145); Total Bilirubin 0.9 mg/dL (0.3-1.2); Total Iron Binding Capacity 348 ug/dL (228-460); Triglycerides <50.0 mg/dL (0.0-149.0)
[2020-09-11 20:04] LABS: Erythrocyte Sedimentation Rate 15 mm/Hr (0-20)
== END | disposition home or self-care (01) ==
LOC: LABWHC1 10:55
PROVIDERS: ATTEND Internal Medicine
DX: D64.9 Anemia, unspecified (principal); E78.5 Hyperlipidemia, unspecified; E03.9 Hypothyroidism, unspecified; E51.9 Thiamine deficiency, unspecified; L65.9 Nonscarring hair loss, unspecified; D50.9 Iron deficiency anemia, unspecified
CPT/HCPCS: 36415; 80053; 80061; 82306; 82607; 82728; 82746; 83540; 83550; 84439; 84443; 85025; 85652; 86140

== ENCOUNTER 2020-11-20 21:09 | Emergency (ER) | payer OTHER ==
--- NOTE | 2020-11-20 21:25 | ED ---
Back Pain HPI - General Chief Complaint: Back Pain/Injury Stated Complaint: Back Pain, Less then 20 wks preg Time Seen by Provider: 11/20/20 21:18 Source: patient, RN notes reviewed, old records reviewed Limitations: language barrier - History of Present Illness Initial Comments: This is a 35-year-old female who is unable to provide accurate history secondary to language barrier. Patient presents with back pain today. Known positive . No fevers no dysuria no bowel or bladder issues and no trauma. Patient has no other significant medical history takes no medications MD Complaint: back pain -: hour(s) Similar Symptoms Previously: Yes Place: home Radiation: none Severity: mild Severity scale (1-10): 3 Quality: aching Consistency: intermittent Improves With: none Worsens With: none Context: other (none) Associated Symptoms: weakness Treatments Prior to Arrival: other (none) - Related Data Home Medications Medication Instructions Recorded Confirmed Aspirin [Adult Low Dose Aspirin EC] 1 tab PO DAILY 12/03/19 02/10/20 Ferrous Sulfate [Iron] 1 tab PO DAILY 12/03/19 02/10/20 Folic Acid 1 tab PO DAILY 12/03/19 02/10/20 Pnv No.95/Ferrous Fum/Folic AC 1 each PO 12/03/19 [ Multivitamin Tablet] Progesterone, Micronized 1 cap VAGINAL HS 12/03/19 02/10/20 [Progesterone] Allergies Allergy/AdvReac Type Severity Reaction Status Date / Time No Known Allergies Allergy Verified 11/20/20 21:17 Review of Systems ROS Statement: Those systems with pertinent positive or pertinent negative responses have been documented in the HPI. ROS Other: All systems not noted in ROS Statement are negative. Past Medical History Past Medical History: No Reported History Additional Past Medical History / Comment(s): OB history: first was a full term. Second was SAB at 8 weeks. Third was an SAB at 20 weeks. Fourth was an SAB at 6 weeks. This is her fifth . History of Any Multi-Drug Resistant Organisms: None Reported Past Surgical History: Section Past Anesthesia/Blood Transfusion Reactions: No Reported Reaction Past Psychological History: No Psychological Hx Reported Smoking Status: Never smoker Past Alcohol Use History: None Reported Past Drug Use History: None Reported - Past Family History Mother Family Medical History: No Reported History General Exam Limitations: language barrier, physical limitation General appearance: alert, in no apparent distress Head exam: Present: atraumatic, normocephalic, normal inspection Eye exam: Present: normal appearance, PERRL, EOMI. Absent: scleral icterus, conjunctival injection, periorbital swelling ENT exam: Present: normal exam, mucous membranes moist Neck exam: Present: normal inspection. Absent: tenderness, meningismus, lymphadenopathy Respiratory exam: Present: normal lung sounds bilaterally. Absent: respiratory distress, wheezes, rales, rhonchi, stridor Cardiovascular Exam: Present: regular rate, normal rhythm, normal heart sounds. Absent: systolic murmur, diastolic murmur, rubs, gallop, clicks GI/Abdominal exam: Present: soft, normal bowel sounds. Absent: distended, tenderness, guarding, rebound, rigid Extremities exam: Present: normal inspection, full ROM, normal capillary refill. Absent: tenderness, pedal edema, joint swelling, calf tenderness Back exam: Present: normal inspection Neurological exam: Present: alert, oriented X3, CN II-XII intact Psychiatric exam: Present: normal affect, normal mood Skin exam: Present: warm, dry, intact, normal color. Absent: rash Course Vital Signs 11/20/20 21:14 Temperature 98.1 F Pulse Rate 72 Respiratory 18 Rate Blood Pressure 100/66 O2 Sat by Pulse 96 Oximetry - Reevaluation(s) Reevaluation #1: 11/20/20 22:36 Records reviewed Reevaluation #2: 11/20/20 22:36 Patient is in no distress Reevaluation #3: 11/20/20 22:36 Spoke with patient's family members translated who understands and questions are answered Medical Decision Making - Medical Decision Making 35 female DF for evaluation. She does have known positive findings of ultrasound shows viable IUP. Urinalysis is negative patient can be discharged home - Lab Data Lab Results 11/20/20 11/20/20 Range/Units 21:30 21:30 Urine Color Yellow Urine Appearance Clear (Clear) Urine pH 6.5 (5.0-8.0) Ur Specific [place] 1.019 (1.001-1.035) Urine Protein Negative (Negative) Urine Glucose (UA) Negative (Negative) Urine Ketones Negative (Negative) Urine Blood Moderate H (Negative) Urine Nitrite Negative (Negative) Urine Bilirubin Negative (Negative) Urine Urobilinogen <2.0 (<2.0) mg/dL Ur Leukocyte Esterase Negative (Negative) Urine RBC 12 H (0-5) /hpf Urine WBC 1 (0-5) /hpf Ur Squamous Epith Cells 1 (0-4) /hpf Urine Mucus Rare H (None) /hpf Urine HCG, Qual Detected (Not Detectd) - Radiology Data Radiology results: report reviewed (Ultrasound OB is positive for IUP), image reviewed Disposition Clinical Impression: , Back pain affecting Disposition: HOME SELF-CARE Condition: Good Instructions (If sedation given, give patient instructions): Abdominal Pain in (ED) Is patient prescribed a controlled substance at d/c from ED?: No Referrals: Nonstaff,Physician [Primary Care Provider] - 1-2 days
[2020-11-20] MEDS ORDERED: ACETAMINOPHEN TAB 500 MG TAB PO STA (21:27)
[2020-11-20 21:50] LABS: Appearance,Urine Clear (Clear); Bilirubin,Urine Negative (Negative); Blood,Urine Moderate (Negative); Color,Urine Yellow; Glucose,Urine (UA) Negative (Negative); Ketones,Urine Negative (Negative); Leukocyte Esterase,Urine Negative (Negative); Mucus,Urine Rare /hpf; Nitrite,Urine Negative (Negative); PH, Urine 6.5 (5.0-8.0); Protein,Urine Negative (Negative); RBC,Urine 12 /hpf (0-5); Specific Gravity,Urine 1.019 (1.001-1.035); Squamous Epithelial Cell,Urine 1 /hpf (0-4); Urobilinogen,Urine <2.0 mg/dL (<2.0); WBC,Urine 1 /hpf (0-5)
--- NOTE | 2020-11-20 22:31 | US ---
EXAMINATION TYPE: Transabdominal DATE OF EXAM: 11/20/2020 10:09 PM COMPARISON: NONE CLINICAL HISTORY: pain. Back pain EXAM PERFORMED: Transabdominal (TA) EXAM MEASUREMENTS: GESTATIONAL AGE / DATING Physician Established: Not yet established Dates by LMP: (8 weeks/1 days) EDC: 07/01/2021 Dates by First Scan: No previous this is first scan Dates by Current Scan for: (8 weeks/1 days) EDC: 07/01/2021 MATERNAL ANATOMY Uterus: 9.1 x 6.6 x 6.5 cm Right Ovary: 2.6 x 2.3 x 2.2 cm Left Ovary: 2.6 x 1.8 x 2.2 cm Post CDS / Adnexa: wnl Presence of free fluid: No Presence of corpus luteal cyst: Right Ovary= 1..9 x 1.6 x 1.8 cm Presence of subchorionic bleed: No GESTATION / SURVEY CRL: 1.6 cm (8 weeks/1 days) MSD: wnl Yolk Sac (normal less than 6mm): 4mm Heart Rate: 156 bpm Rhythm: Normal IUP: Viable IUP Single, viable IUP IMPRESSION: The ultrasound gestational age is 8 weeks and 1 day. No complicating process seen.
[2020-11-20 23:05] VITALS: BP 95/59; PULSE 68; RESP 16; TEMP 99.4
== END 2020-11-20 23:29 | disposition home or self-care (01) ==
LOC: EC 21:09
DX: O26.891 Other specified pregnancy related conditions, first trimester (principal); M54.5 Low back pain; Z3A.01 Less than 8 weeks gestation of pregnancy
CPT/HCPCS: 76801; 81001; 81025; 99284

== ENCOUNTER 2020-11-27 16:39 | Emergency (ER) | payer OTHER ==
[2020-11-27 17:03] VITALS: RESP 18; TEMP 98.3
[2020-11-27] MEDS ORDERED: SODIUM CHLORIDE 0.9% 1,000 ML IV ONE (17:08)
[2020-11-27 18:15] LABS: Basophils % (A) 1 %; Eosinophils % (A) 1 %; HGB 13.2 gm/dL (11.4-16.0); Lymphocytes # (A) 2.1 k/uL (1.0-4.8); Lymphocytes % (A) 35 %; MCHC 34.6 g/dL (31.0-37.0); MCV 92.3 fL (80.0-100.0); Mean Platelet Volume 7.7; Monocytes # (A) 0.2 k/uL (0-1.0); Monocytes % (A) 3 %; Neutrophils # (A) 3.5 k/uL (1.3-7.7); Neutrophils % (A) 58 %; Platelet Count 261 k/uL (150-450); RBC 4.12 m/uL (3.80-5.40); RDW 12.3 % (11.5-15.5)
[2020-11-27 18:24] LABS: Appearance,Urine Clear (Clear); Bacteria,Urine Rare /hpf; Bilirubin,Urine Negative (Negative); Blood,Urine Small (Negative); Color,Urine Light Yellow; Glucose,Urine (UA) Negative (Negative); Ketones,Urine Negative (Negative); Leukocyte Esterase,Urine Negative (Negative); Mucus,Urine Rare /hpf; Nitrite,Urine Negative (Negative); PH, Urine 5.5 (5.0-8.0); Protein,Urine Negative (Negative); RBC,Urine 2 /hpf (0-5); Specific Gravity,Urine 1.006 (1.001-1.035); Squamous Epithelial Cell,Urine <1 /hpf (0-4); Urobilinogen,Urine <2.0 mg/dL (<2.0); WBC,Urine <1 /hpf (0-5)
[2020-11-27 18:24] LABS: ALT 13 U/L (4-34); AST 22 U/L (14-36); African American GFR (CKD) >90 (>60 ml/min/1.73 sqM); Albumin 4.8 g/dL (3.5-5.0); Alkaline Phosphatase 42 U/L (38-126); Anion Gap 10 mmol/L; Blood Urea Nitrogen 9 mg/dL (7-17); Calcium 9.6 mg/dL (8.4-10.2); Carbon Dioxide 21 mmol/L (22-30); Chloride 106 mmol/L (98-107); Glucose 79 mg/dL (74-99); Non-African American GFR(CKD) >90 (>60 ml/min/1.73 sqM); Potassium 3.6 mmol/L (3.5-5.1); Sodium 137 mmol/L (137-145); Total Bilirubin 0.7 mg/dL (0.2-1.3); Total Protein 7.3 g/dL (6.3-8.2)
--- NOTE | 2020-11-27 18:51 | US ---
EXAMINATION TYPE: Transabdominal DATE OF EXAM: 11/27/2020 6:21 PM COMPARISON: NONE CLINICAL HISTORY: bleeding. light bleeding and pelvic pain today per , patient does not speak Malay, A3, h/o multiple miscarriages EXAM PERFORMED: OBTA EXAM MEASUREMENTS: GESTATIONAL AGE / DATING Physician Established: Not yet established Dates by LMP: (9 weeks/1 days) EDC: 07/01/2021 Dates by First Scan: (9 weeks/1 days) EDC: 07/01/2021 Dates by Current Scan for: (8 weeks/4 days) EDC: demise MATERNAL ANATOMY Uterus: 9.2 x 6.7 x 5.8cm Right Ovary: 3.4 x 2.2 x 2.0cm Left Ovary: not seen due to bowel gas and enlarging UT Post CDS / Adnexa: wnl Presence of free fluid: no Presence of corpus luteal cyst: right ovary = 1.9cm Presence of subchorionic bleed: no GESTATION / SURVEY CRL: 2.0cm (8 weeks/4 days) MSD: wnl Heart Rate: 0 bpm IUP: Demise Date of LMP: 09/24/2020 Beta HcG (if available): pending IMPRESSION: There is intrauterine demise at approximately 8 weeks and 4 days gestation.
--- NOTE | 2020-11-27 19:04 | ED ---
General Adult HPI - General Chief complaint: Vaginal Bleeding Stated complaint: Abd pain, & spotting Time Seen by Provider: 11/27/20 17:08 Source: patient, family, RN notes reviewed Mode of arrival: ambulatory Limitations: no limitations - History of Present Illness Initial comments: 35-year-old female currently about 6 weeks presents to the emergency room for a chief complaint of vaginal bleeding. Patient's is translating for her. I did offer a farm loan inspector which was declined. Patient started to have slight vaginal bleeding earlier today. She states it is a very small amount. States she has some cramping as well. 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 Patient denies any lightheadedness.Patient has no other complaints at this time including shortness of breath, chest pain, abdominal pain, nausea or vomiting, headache, or visual changes. - Related Data Home Medications Medication Instructions Recorded Confirmed Aspirin [Adult Low Dose Aspirin EC] 1 tab PO DAILY 12/03/19 02/10/20 Ferrous Sulfate [Iron] 1 tab PO DAILY 12/03/19 02/10/20 Folic Acid 1 tab PO DAILY 12/03/19 02/10/20 Pnv No.95/Ferrous Fum/Folic AC 1 each PO 12/03/19 [ Multivitamin Tablet] Progesterone, Micronized 1 cap VAGINAL HS 12/03/19 02/10/20 [Progesterone] Allergies Allergy/AdvReac Type Severity Reaction Status Date / Time No Known Allergies Allergy Verified 11/27/20 17:00 Review of Systems ROS Statement: Those systems with pertinent positive or pertinent negative responses have been documented in the HPI. ROS Other: All systems not noted in ROS Statement are negative. Past Medical History Past Medical History: No Reported History Additional Past Medical History / Comment(s): OB history: first was a full term. Second was SAB at 8 weeks. Third was an SAB at 20 weeks. Fourth was an SAB at 6 weeks. This is her fifth . History of Any Multi-Drug Resistant Organisms: None Reported Past Surgical History: Section Past Anesthesia/Blood Transfusion Reactions: No Reported Reaction Past Psychological History: No Psychological Hx Reported Smoking Status: Never smoker Past Alcohol Use History: None Reported Past Drug Use History: None Reported - Past Family History Mother Family Medical History: No Reported History General Exam Limitations: no limitations General appearance: alert, in no apparent distress Head exam: Present: atraumatic Eye exam: Present: normal appearance, PERRL, EOMI. Absent: scleral icterus ENT exam: Present: normal exam, mucous membranes moist Neck exam: Present: normal inspection, full ROM. Absent: tenderness Respiratory exam: Present: normal lung sounds bilaterally. Absent: respiratory distress, wheezes Cardiovascular Exam: Present: regular rate, normal rhythm, normal heart sounds GI/Abdominal exam: Present: soft, normal bowel sounds. Absent: distended, tenderness Course Vital Signs 11/27/20 17:00 Temperature 98.3 F Pulse Rate 80 Respiratory 18 Rate Blood Pressure 100/71 O2 Sat by Pulse 97 Oximetry Medical Decision Making - Medical Decision Making Vitals are stable. CBC is unremarkable. Hemoglobin is 13.2. CMP unremarkable. Urinalysis does not show any evidence of infection. Ultrasound reveals intrauterine demise at approximately 8 weeks and 4 days. Discussed this with patient. At this time patient will follow-up with her high school band teacher/GYN in [place]. She has an appointment coming up next week. However she will call Sunday to inform them of what happened. In the meantime she will watch for any significant bleeding such as bleeding through pad an hour or lightheadedness and return if this occurs. - Lab Data Result diagrams: 11/27/20 18:00 11/27/20 18:00 Lab Results 11/27/20 11/27/20 11/27/20 Range/Units 18:00 18:00 18:00 WBC 6.0 (3.8-10.6) k/uL RBC 4.12 (3.80-5.40) m/uL Hgb 13.2 (11.4-16.0) gm/dL Hct 38.0 (34.0-46.0) % MCV 92.3 (80.0-100.0) fL MCH 32.0 (25.0-35.0) pg MCHC 34.6 (31.0-37.0) g/dL RDW 12.3 (11.5-15.5) % Plt Count 261 (150-450) k/uL MPV 7.7 Neutrophils % 58 % Lymphocytes % 35 % Monocytes % 3 % Eosinophils % 1 % Basophils % 1 % Neutrophils # 3.5 (1.3-7.7) k/uL Lymphocytes # 2.1 (1.0-4.8) k/uL Monocytes # 0.2 (0-1.0) k/uL Eosinophils # 0.0 (0-0.7) k/uL Basophils # 0.0 (0-0.2) k/uL Sodium 137 (137-145) mmol/L Potassium 3.6 (3.5-5.1) mmol/L Chloride 106 (98-107) mmol/L Carbon Dioxide 21 L (22-30) mmol/L Anion Gap 10 mmol/L BUN 9 (7-17) mg/dL Creatinine 0.44 L (0.52-1.04) mg/dL Est GFR (CKD-EPI)AfAm >90 (>60 ml/min/1.73 sqM) Est GFR (CKD-EPI)NonAf >90 (>60 ml/min/1.73 sqM) Glucose 79 (74-99) mg/dL Calcium 9.6 (8.4-10.2) mg/dL Total Bilirubin 0.7 (0.2-1.3) mg/dL AST 22 (14-36) U/L ALT 13 (4-34) U/L Alkaline Phosphatase 42 (38-126) U/L Total Protein 7.3 (6.3-8.2) g/dL Albumin 4.8 (3.5-5.0) g/dL HCG, Quant 36333.4 mIU/mL Urine Color Urine Appearance (Clear) Urine pH (5.0-8.0) Ur Specific [place] (1.001-1.035) Urine Protein (Negative) Urine Glucose (UA) (Negative) Urine Ketones (Negative) Urine Blood (Negative) Urine Nitrite (Negative) Urine Bilirubin (Negative) Urine Urobilinogen (<2.0) mg/dL Ur Leukocyte Esterase (Negative) Urine RBC (0-5) /hpf Urine WBC (0-5) /hpf Ur Squamous Epith Cells (0-4) /hpf Urine Bacteria (None) /hpf Urine Mucus (None) /hpf Blood Type A Positive Blood Type Recheck A Pos Bld Type Recheck Status No 11/27/20 Range/Units 18:02 WBC (3.8-10.6) k/uL RBC (3.80-5.40) m/uL Hgb (11.4-16.0) gm/dL Hct (34.0-46.0) % MCV (80.0-100.0) fL MCH (25.0-35.0) pg MCHC (31.0-37.0) g/dL RDW (11.5-15.5) % Plt Count (150-450) k/uL MPV Neutrophils % % Lymphocytes % % Monocytes % % Eosinophils % % Basophils % % Neutrophils # (1.3-7.7) k/uL Lymphocytes # (1.0-4.8) k/uL Monocytes # (0-1.0) k/uL Eosinophils # (0-0.7) k/uL Basophils # (0-0.2) k/uL Sodium (137-145) mmol/L Potassium (3.5-5.1) mmol/L Chloride (98-107) mmol/L Carbon Dioxide (22-30) mmol/L Anion Gap mmol/L BUN (7-17) mg/dL Creatinine (0.52-1.04) mg/dL Est GFR (CKD-EPI)AfAm (>60 ml/min/1.73 sqM) Est GFR (CKD-EPI)NonAf (>60 ml/min/1.73 sqM) Glucose (74-99) mg/dL Calcium (8.4-10.2) mg/dL Total Bilirubin (0.2-1.3) mg/dL AST (14-36) U/L ALT (4-34) U/L Alkaline Phosphatase (38-126) U/L Total Protein (6.3-8.2) g/dL Albumin (3.5-5.0) g/dL HCG, Quant mIU/mL Urine Color Light Yellow Urine Appearance Clear (Clear) Urine pH 5.5 (5.0-8.0) Ur Specific [place] 1.006 (1.001-1.035) Urine Protein Negative (Negative) Urine Glucose (UA) Negative (Negative) Urine Ketones Negative (Negative) Urine Blood Small H (Negative) Urine Nitrite Negative (Negative) Urine Bilirubin Negative (Negative) Urine Urobilinogen <2.0 (<2.0) mg/dL Ur Leukocyte Esterase Negative (Negative) Urine RBC 2 (0-5) /hpf Urine WBC <1 (0-5) /hpf Ur Squamous Epith Cells <1 (0-4) /hpf Urine Bacteria Rare H (None) /hpf Urine Mucus Rare H (None) /hpf Blood Type Blood Type Recheck Bld Type Recheck Status Disposition Clinical Impression: Miscarriage Disposition: HOME SELF-CARE Condition: Good Instructions (If sedation given, give patient instructions): Miscarriage (ED) Additional Instructions: Please follow-up with your DIRECTOR OF THERAPY SERVICES by calling Sunday. Return to the emergency room for any worsening symptoms such as bleeding through a pad an hour or lightheadedness Is patient prescribed a controlled substance at d/c from ED?: No Referrals: Choco Isbell MD [Primary Care Provider] - 1-2 days Time of Disposition: 19:05
[2020-11-27 19:06] LABS: HCG,Quantitative Serum 23694.4 mIU/mL
[2020-11-27 19:14] VITALS: BP 100/59; PULSE 73
== END 2020-11-27 19:15 | disposition home or self-care (01) ==
LOC: EC 16:39
DX: O09.91 Supervision of high risk pregnancy, unspecified, first trimester (principal); O03.9 Complete or unspecified spontaneous abortion without complication; Z79.82 Long term (current) use of aspirin; Z3A.01 Less than 8 weeks gestation of pregnancy
CPT/HCPCS: 36415; 76801; 80053; 81001; 84702; 85025; 86900; 86901; 96360; 99284

== ENCOUNTER 2020-12-08 17:05 | Emergency (ER) | payer OTHER ==
[2020-12-08 17:35] VITALS: BP 120/79; PULSE 64; RESP 18; TEMP 98
--- NOTE | 2020-12-08 18:23 | ED ---
Recheck HPI - General Chief Complaint: Recheck/Abnormal Lab/Rx Stated Complaint: Covid test Source: patient, RN notes reviewed Mode of arrival: ambulatory Limitations: no limitations - History of Present Illness Initial Comments: Patient is a 35-year-old female that presents to emergency department needing a Covid test to get a outpatient procedure done. She denied any symptoms at this time. She was otherwise a well-appearing 35-year-old female no apparent distress. She denied any chest pain first breath headache nausea vomiting diarrhea constipation fever fatigue chills. - Related Data Home Medications Medication Instructions Recorded Confirmed Aspirin [Adult Low Dose Aspirin EC] 1 tab PO DAILY 12/03/19 02/10/20 Ferrous Sulfate [Iron] 1 tab PO DAILY 12/03/19 02/10/20 Folic Acid 1 tab PO DAILY 12/03/19 02/10/20 Pnv No.95/Ferrous Fum/Folic AC 1 each PO 12/03/19 [ Multivitamin Tablet] Progesterone, Micronized 1 cap VAGINAL HS 12/03/19 02/10/20 [Progesterone] Allergies Allergy/AdvReac Type Severity Reaction Status Date / Time No Known Allergies Allergy Verified 11/27/20 17:00 Review of Systems ROS Statement: Those systems with pertinent positive or pertinent negative responses have been documented in the HPI. ROS Other: All systems not noted in ROS Statement are negative. Past Medical History Past Medical History: No Reported History Additional Past Medical History / Comment(s): OB history: first was a full term. Second was SAB at 8 weeks. Third was an SAB at 20 weeks. Fourth was an SAB at 6 weeks. This is her fifth . History of Any Multi-Drug Resistant Organisms: None Reported Past Surgical History: Section Past Anesthesia/Blood Transfusion Reactions: No Reported Reaction Past Psychological History: No Psychological Hx Reported Smoking Status: Never smoker Past Alcohol Use History: None Reported Past Drug Use History: None Reported - Past Family History Mother Family Medical History: No Reported History General Exam Limitations: no limitations General appearance: alert, in no apparent distress Head exam: Present: atraumatic, normocephalic, normal inspection Eye exam: Present: normal appearance, PERRL, EOMI. Absent: scleral icterus, conjunctival injection, periorbital swelling Neck exam: Present: normal inspection Respiratory exam: Present: normal lung sounds bilaterally. Absent: respiratory distress, wheezes, rales, rhonchi, stridor Cardiovascular Exam: Present: regular rate, normal rhythm, normal heart sounds. Absent: systolic murmur, diastolic murmur, rubs, gallop, clicks Extremities exam: Present: normal inspection, full ROM, normal capillary refill. Absent: tenderness, pedal edema, joint swelling, calf tenderness Neurological exam: Present: alert, oriented X3 Psychiatric exam: Present: normal affect, normal mood Skin exam: Present: warm, dry, intact, normal color. Absent: rash Course Vital Signs 12/08/20 17:33 Temperature 98.0 F Pulse Rate 64 Respiratory 18 Rate Blood Pressure 120/79 O2 Sat by Pulse 96 Oximetry Medical Decision Making - Medical Decision Making [age] female needed a Covid test for outpatient procedure. Covid test ordered. Covid test negative. Case discussed with Dr. Lara, patient discharge home. - Lab Data Lab Results 12/08/20 Range/Units 17:38 Coronavirus (PCR) Not Detected (Not Detectd) Disposition Clinical Impression: Encounter for screening for COVID-19 Disposition: HOME SELF-CARE Condition: Stable Instructions (If sedation given, give patient instructions): Coronavirus Disease 2019 (COVID-19) Additional Instructions: Please return to the Emergency Department if symptoms worsen or any other concerns. Is patient prescribed a controlled substance at d/c from ED?: No Referrals: Choco Isbell MD [Primary Care Provider] - 1-2 days Time of Disposition: 18:23
== END 2020-12-08 18:24 | disposition home or self-care (01) ==
LOC: EC 17:05
DX: Z20.822 Contact with and (suspected) exposure to COVID-19 (principal); Z79.82 Long term (current) use of aspirin
CPT/HCPCS: 87635; 99282

== ENCOUNTER → 2021-04-22 | Outpatient (CLI) | payer OTHER ==
[2021-04-25 22:30] LABS: HIV 2 AB Non-Reactive (Non-Reactive); HIV AB P24 Non-Reactive (Non-Reactive); HIV P24 AG Non-Reactive (Non-Reactive)
== END | disposition home or self-care (01) ==
LOC: LABWHC1 15:42
PROVIDERS: ATTEND Internal Medicine Cardiovascular Disease
DX: Z01.84 Encounter for antibody response examination (principal); Z13.29 Encounter for screening for other suspected endocrine disorder; Z11.3 Encounter for screening for infections with a predominantly sexual mode of transmission; Z11.4 Encounter for screening for human immunodeficiency virus [HIV]
CPT/HCPCS: 36415; 84146; 86780; 86787; 87390

== ENCOUNTER → 2021-05-09 | Outpatient (CLI) | payer OTHER | END | disposition home or self-care (01) | LOC: LABWHC1 16:24 | PROVIDERS: ATTEND Obstetrics & Gynecology Reproductive Endocrinology | DX: Z32.00 Encounter for pregnancy test, result unknown (principal); N97.9 Female infertility, unspecified | CPT/HCPCS: 36415; 84144; 84443; 84702 ==

== ENCOUNTER 2021-06-03 20:39 | Emergency (ER) | payer OTHER ==
[2021-06-03 20:47] VITALS: BP 99/62; PULSE 77; RESP 20; TEMP 98.1
[2021-06-03 21:12] LABS: Amorphous Sediment,Urine Rare /hpf; Appearance,Urine Cloudy (Clear); Bilirubin,Urine Negative (Negative); Blood,Urine Small (Negative); Color,Urine Yellow; Glucose,Urine (UA) Negative (Negative); Ketones,Urine Negative (Negative); Leukocyte Esterase,Urine Small (Negative); Nitrite,Urine Negative (Negative); Protein,Urine Negative (Negative); RBC,Urine 4 /hpf (0-5); Specific Gravity,Urine 1.018 (1.001-1.035); Squamous Epithelial Cell,Urine 1 /hpf (0-4); Urobilinogen,Urine <2.0 mg/dL (<2.0); WBC,Urine 2 /hpf (0-5)
[2021-06-03 23:21] LABS: Basophils % (A) 0 %; Eosinophils # (A) 0.1 k/uL (0-0.7); Eosinophils % (A) 1 %; HCT 35.5 % (34.0-46.0); HGB 12.1 gm/dL (11.4-16.0); Lymphocytes # (A) 2.2 k/uL (1.0-4.8); Lymphocytes % (A) 33 %; MCH 32.1 pg (25.0-35.0); MCHC 34.1 g/dL (31.0-37.0); MCV 94.1 fL (80.0-100.0); Mean Platelet Volume 7.8; Monocytes # (A) 0.3 k/uL (0-1.0); Monocytes % (A) 4 %; Neutrophils % (A) 61 %; Platelet Count 258 k/uL (150-450); RBC 3.77 m/uL (3.80-5.40); RDW 12.6 % (11.5-15.5); WBC 6.7 k/uL (3.8-10.6)
--- NOTE | 2021-06-03 23:34 | US ---
EXAMINATION TYPE: Transabdominal DATE OF EXAM: 06/03/2021 11:23 PM COMPARISON: NONE CLINICAL HISTORY: abdominal pain. back pain, pelvic pain, no bleeding EXAM PERFORMED: Transabdominal (TA) EXAM MEASUREMENTS: GESTATIONAL AGE / DATING Physician Established: Not yet established Dates by LMP: (13 weeks/0 days) EDC: 12/09/21 Dates by First Scan: No previous this is first scan Dates by Current Scan for: (8 weeks/5 days) EDC: 01/08/22 MATERNAL ANATOMY Uterus: 7.9 x 5.9 x 7.5cm Right Ovary: 3.1 x 2.1 x 2.4cm Left Ovary: 2.9 x 1.7 x 1.8cm Post CDS / Adnexa: wnl Presence of free fluid: no Presence of corpus luteal cyst: yes, cystic area right ovary = 1.9cm GESTATION / SURVEY CRL: 2.0cm (8 weeks/5 days) Yolk Sac (normal less than 6mm): 0.2cm Heart Rate: unable to detect heart tones at this time IUP: Demise Date of LMP: 03/04/21 Beta HcG (if available): Not available at this time IMPRESSION: There is evidence for demise at 8 weeks and 5 days gestation.
[2021-06-03 23:36] LABS: ALT 11 U/L (4-34); AST 19 U/L (14-36); African American GFR (CKD) >90 (>60 ml/min/1.73 sqM); Albumin 4.2 g/dL (3.5-5.0); Alkaline Phosphatase 32 U/L (38-126); Anion Gap 10 mmol/L; Blood Urea Nitrogen 17 mg/dL (7-17); Calcium 9.1 mg/dL (8.4-10.2); Carbon Dioxide 21 mmol/L (22-30); Chloride 104 mmol/L (98-107); Glucose 97 mg/dL (74-99); Lipase 87 U/L (23-300); Non-African American GFR(CKD) >90 (>60 ml/min/1.73 sqM); Potassium 3.6 mmol/L (3.5-5.1); Sodium 135 mmol/L (137-145); Total Bilirubin 0.5 mg/dL (0.2-1.3); Total Protein 6.9 g/dL (6.3-8.2)
--- NOTE | 2021-06-04 00:02 | ED ---
Abdominal Pain HPI - General Chief Complaint: Abdominal Pain Stated Complaint: 8wks , Abdominal Pain Time Seen by Provider: 06/03/21 22:09 Source: patient Mode of arrival: ambulatory Limitations: language barrier - History of Present Illness Initial Comments: Patient is a A 4 female at 8 weeks who presents to the emergency department with a chief complaint of lower abdominal pain. Patient's friend speaks on patient's behalf due to language barrier. Patient reports the pain started suddenly today. She is unable to describe the pain. The pain is in the lower region of the abdomen with no localization to a certain side. Patient does state there is some radiation to the lower back. She denies fever, chills, shortness of breath, chest pain, bilateral flank pain, nausea, vomiting, constipation, diarrhea, dysuria, vaginal bleeding, and vaginal discharge. Patient has a history of 2 C-sections. - Related Data Home Medications Medication Instructions Recorded Confirmed Aspirin [Adult Low Dose Aspirin EC] 81 mg PO DAILY 12/03/19 06/03/21 Ferrous Sulfate [Iron] 325 tab PO DAILY 12/03/19 06/03/21 Folic Acid 0.8 mg PO DAILY 12/03/19 06/03/21 Pnv No.95/Ferrous Fum/Folic AC 1 tab PO DAILY 12/03/19 06/03/21 [ Multivitamin Tablet] Progesterone, Micronized 200 mg VAGINAL BID 12/03/19 06/03/21 [Progesterone] Allergies Allergy/AdvReac Type Severity Reaction Status Date / Time No Known Allergies Allergy Verified 06/03/21 22:26 Review of Systems ROS Statement: Those systems with pertinent positive or pertinent negative responses have been documented in the HPI. ROS Other: All systems not noted in ROS Statement are negative. Past Medical History Past Medical History: No Reported History Additional Past Medical History / Comment(s): OB history: first was a full term. Second was SAB at 8 weeks. Third was an SAB at 20 weeks. Fourth was an SAB at 6 weeks. This is her fifth . History of Any Multi-Drug Resistant Organisms: None Reported Past Surgical History: Section Past Anesthesia/Blood Transfusion Reactions: No Reported Reaction Past Psychological History: No Psychological Hx Reported Smoking Status: Never smoker Past Alcohol Use History: None Reported Past Drug Use History: None Reported - Past Family History Mother Family Medical History: No Reported History General Exam Limitations: language barrier General appearance: alert, in no apparent distress Head exam: Present: atraumatic, normocephalic, normal inspection Eye exam: Present: normal appearance, PERRL, EOMI. Absent: scleral icterus, conjunctival injection, periorbital swelling Respiratory exam: Present: normal lung sounds bilaterally. Absent: respiratory distress, wheezes, rales, rhonchi, stridor Cardiovascular Exam: Present: regular rate, normal rhythm, normal heart sounds. Absent: systolic murmur, diastolic murmur, rubs, gallop, clicks GI/Abdominal exam: Present: soft, tenderness (Mild in right lower quadrant), normal bowel sounds. Absent: distended, guarding, rebound, rigid Back exam: Present: normal inspection. Absent: CVA tenderness (R), CVA tenderness (L) Neurological exam: Present: alert, oriented X3, CN II-XII intact Psychiatric exam: Present: normal affect, normal mood Skin exam: Present: warm, dry, intact, normal color. Absent: rash Course Vital Signs 06/03/21 20:43 Temperature 98.1 F Pulse Rate 77 Respiratory 20 Rate Blood Pressure 99/62 O2 Sat by Pulse 99 Oximetry Medical Decision Making - Medical Decision Making This is a 35-year-old female at 8 weeks who presents with a chief complaint of lower abdominal pain. Thorough history and examination were performed. Patient is afebrile. She is not tachycardic. She is mildly tender with palpation of the right lower quadrant. Laboratory studies are relatively unremarkable. Transabdominal ultrasound shows evidence for demise at 8 weeks and 5 days gestation. Results discussed with patient and patient's friend. Patient will be discharged with instruction to follow up with WELDING MACHINE TENDER in one to 2 days. Return parameters discussed. Patient verbalizes understanding and is agreeable to plan. Dr. Christian is my attending. - Lab Data Result diagrams: 06/03/21 23:03 06/03/21 23:03 Lab Results 06/03/21 06/03/21 06/03/21 Range/Units 20:52 23:03 23:03 WBC 6.7 (3.8-10.6) k/uL RBC 3.77 L (3.80-5.40) m/uL Hgb 12.1 (11.4-16.0) gm/dL Hct 35.5 (34.0-46.0) % MCV 94.1 (80.0-100.0) fL MCH 32.1 (25.0-35.0) pg MCHC 34.1 (31.0-37.0) g/dL RDW 12.6 (11.5-15.5) % Plt Count 258 (150-450) k/uL MPV 7.8 Neutrophils % 61 % Lymphocytes % 33 % Monocytes % 4 % Eosinophils % 1 % Basophils % 0 % Neutrophils # 4.0 (1.3-7.7) k/uL Lymphocytes # 2.2 (1.0-4.8) k/uL Monocytes # 0.3 (0-1.0) k/uL Eosinophils # 0.1 (0-0.7) k/uL Basophils # 0.0 (0-0.2) k/uL Sodium 135 L (137-145) mmol/L Potassium 3.6 (3.5-5.1) mmol/L Chloride 104 (98-107) mmol/L Carbon Dioxide 21 L (22-30) mmol/L Anion Gap 10 mmol/L BUN 17 (7-17) mg/dL Creatinine 0.58 (0.52-1.04) mg/dL Est GFR (CKD-EPI)AfAm >90 (>60 ml/min/1.73 sqM) Est GFR (CKD-EPI)NonAf >90 (>60 ml/min/1.73 sqM) Glucose 97 (74-99) mg/dL Calcium 9.1 (8.4-10.2) mg/dL Total Bilirubin 0.5 (0.2-1.3) mg/dL AST 19 (14-36) U/L ALT 11 (4-34) U/L Alkaline Phosphatase 32 L (38-126) U/L Total Protein 6.9 (6.3-8.2) g/dL Albumin 4.2 (3.5-5.0) g/dL Lipase 87 (23-300) U/L HCG, Quant 04326.3 mIU/mL Urine Color Yellow Urine Appearance Cloudy H (Clear) Urine pH 7.0 (5.0-8.0) Ur Specific [place] 1.018 (1.001-1.035) Urine Protein Negative (Negative) Urine Glucose (UA) Negative (Negative) Urine Ketones Negative (Negative) Urine Blood Small H (Negative) Urine Nitrite Negative (Negative) Urine Bilirubin Negative (Negative) Urine Urobilinogen <2.0 (<2.0) mg/dL Ur Leukocyte Esterase Small H (Negative) Urine RBC 4 (0-5) /hpf Urine WBC 2 (0-5) /hpf Ur Squamous Epith Cells 1 (0-4) /hpf Amorphous Sediment Rare H (None) /hpf Disposition Clinical Impression: Spontaneous Disposition: HOME SELF-CARE Condition: Good Instructions (If sedation given, give patient instructions): Miscarriage (ED) Additional Instructions: Follow-up with [facility]-DIRECT SUPPORT STAFF MEMBER in 1 to 2 days for further evaluation and treatment. Return to the emergency department if you experience new, concerning, or worsening symptoms. Is patient prescribed a controlled substance at d/c from ED?: No Referrals: Choco Isbell MD [Primary Care Provider] - 1-2 days Time of Disposition: 00:32
[2021-06-04 00:22] LABS: HCG,Quantitative Serum 32637.3 mIU/mL
== END 2021-06-04 01:10 | disposition home or self-care (01) ==
LOC: EC 20:39
DX: O03.9 Complete or unspecified spontaneous abortion without complication (principal)
CPT/HCPCS: 36415; 76801; 80053; 81001; 83690; 84702; 85025; 99284

== ENCOUNTER 2021-06-27 15:02 | Emergency (ER) | payer OTHER ==
[2021-06-27 15:10] VITALS: BP 97/63; PULSE 62; RESP 20; TEMP 97.5
--- NOTE | 2021-06-27 16:50 | ED ---
Recheck HPI - General Chief Complaint: Recheck/Abnormal Lab/Rx Stated Complaint: Covid Test Time Seen by Provider: 06/27/21 16:49 Source: patient, family Mode of arrival: ambulatory Limitations: no limitations - History of Present Illness Initial Comments: Patient is a 35-year-old female who seeks COVID-19 testing for surgery scheduled on 06/30/21. She denies recent sick contacts. Patient has no concerns at this time including fever, chills, headache, shortness of breath, sore throat, cough, chest pain, abdominal pain, nausea, vomiting, and burning with urination. - Related Data Home Medications Medication Instructions Recorded Confirmed Aspirin [Adult Low Dose Aspirin EC] 81 mg PO DAILY 12/03/19 06/03/21 Ferrous Sulfate [Iron] 325 tab PO DAILY 12/03/19 06/03/21 Folic Acid 0.8 mg PO DAILY 12/03/19 06/03/21 Pnv No.95/Ferrous Fum/Folic AC 1 tab PO DAILY 12/03/19 06/03/21 [ Multivitamin Tablet] Progesterone, Micronized 200 mg VAGINAL BID 12/03/19 06/03/21 [Progesterone] Allergies Allergy/AdvReac Type Severity Reaction Status Date / Time No Known Allergies Allergy Verified 06/27/21 15:09 Review of Systems ROS Statement: Those systems with pertinent positive or pertinent negative responses have been documented in the HPI. ROS Other: All systems not noted in ROS Statement are negative. Past Medical History Past Medical History: No Reported History Additional Past Medical History / Comment(s): OB history: first was a full term. Second was SAB at 8 weeks. Third was an SAB at 20 weeks. Fourth was an SAB at 6 weeks. This is her fifth . History of Any Multi-Drug Resistant Organisms: None Reported Past Surgical History: Section Past Anesthesia/Blood Transfusion Reactions: No Reported Reaction Past Psychological History: No Psychological Hx Reported Smoking Status: Never smoker Past Alcohol Use History: None Reported Past Drug Use History: None Reported - Past Family History Mother Family Medical History: No Reported History General Exam Limitations: no limitations General appearance: alert, in no apparent distress Head exam: Present: atraumatic, normocephalic, normal inspection Eye exam: Present: normal appearance, PERRL, EOMI. Absent: scleral icterus, conjunctival injection, periorbital swelling Neck exam: Present: normal inspection, full ROM Respiratory exam: Present: normal lung sounds bilaterally. Absent: respiratory distress, wheezes, rales, rhonchi, stridor Cardiovascular Exam: Present: regular rate, normal rhythm, normal heart sounds. Absent: systolic murmur, diastolic murmur, rubs, gallop, clicks GI/Abdominal exam: Present: soft, normal bowel sounds. Absent: distended, tenderness, guarding, rebound, rigid Neurological exam: Present: alert, oriented X3, CN II-XII intact Psychiatric exam: Present: normal affect, normal mood Skin exam: Present: warm, dry, intact, normal color. Absent: rash Course Vital Signs 06/27/21 15:07 Temperature 97.5 F L Pulse Rate 62 Respiratory 20 Rate Blood Pressure 97/63 O2 Sat by Pulse 99 Oximetry Medical Decision Making - Medical Decision Making This is a 35-year-old female who takes COVID-19 testing for clearance for surgery this . Thorough history and examination were performed. Patient is COVID-19 negative. She will be discharged with printed negative results. Return parameters discussed. Patient verbalizes understanding and is agreeable to plan. Dr. Lara is my attending. - Lab Data Lab Results 06/27/21 Range/Units 15:15 Coronavirus (PCR) Not Detected (Not Detectd) Disposition Clinical Impression: Encounter for screening for COVID-19 Disposition: HOME SELF-CARE Condition: Good Additional Instructions: Return to the emergency department if you experience new, concerning, or worsening symptoms. Is patient prescribed a controlled substance at d/c from ED?: No Referrals: Choco Isbell MD [Primary Care Provider] - 1-2 days Time of Disposition: 16:50
== END 2021-06-27 16:54 | disposition home or self-care (01) ==
LOC: EC 15:02
DX: Z20.822 Contact with and (suspected) exposure to COVID-19 (principal)
CPT/HCPCS: 87635; 99283

== ENCOUNTER → 2021-10-06 | Outpatient (CLI) | payer OTHER ==
[2021-10-06 22:49] LABS: Basophils # (A) 0.02 X 10*3/uL (0.00-0.10); Basophils % (A) 0.4 %; Eosinophils # (A) 0.03 X 10*3/uL (0.04-0.35); Eosinophils % (A) 0.6 %; HCT 36.6 % (37.2-46.3); HGB 11.7 g/dL (12.0-15.0); Immature Grans, Automated 0.2 %; Lymphocytes # (A) 2.01 X 10*3/uL (0.90-5.00); Lymphocytes % (A) 40.9 %; MCH 29.3 pg (27.0-32.0); MCV 91.5 fL (80.0-97.0); Mean Platelet Volume 11.3 fL (9.5-12.2); Monocytes % (A) 6.1 %; NRBC Per 100 WBC 0 /100 WBCS (0.0-0.0); Neutrophils # (A) 2.55 X 10*3/uL (1.80-7.70); Neutrophils % (A) 51.8 %; Platelet Count 310 X 10*3/uL (140-440); WBC 4.92 X 10*3/uL (4.50-10.00)
[2021-10-06 23:11] LABS: Erythrocyte Sedimentation Rate 8 mm/Hr (0-20)
[2021-10-07 00:24] LABS: Appearance,Urine Cloudy (Clear); Bacteria,Urine 3+ /HPF (None Seen); Bilirubin,Urine Small (Negative); Blood,Urine Small (Negative); Color,Urine Orange (Yellow); Ketones,Urine Trace mg/dL (Negative); Nitrite,Urine Negative (Negative); PH, Urine 5.5 (5.0-8.0); Specific Gravity,Urine 1.032 (1.001-1.030)
[2021-10-07 01:11] LABS: HCG,Quantitative Serum <3.0 (0.0-6.0)
[2021-10-07 01:39] LABS: C Reactive Protein <0.30 mg/dL (0.00-0.80)
[2021-10-07 01:54] LABS: Chol/HDL Ratio 3.18 Ratio; Creatine Kinase 62 U/L (26-186); Phosphorus 2.7 mg/dL (2.4-5.1)
== END | disposition home or self-care (01) ==
LOC: LABWHC1 15:16
PROVIDERS: ATTEND Obstetrics & Gynecology Reproductive Endocrinology
DX: O02.1 Missed abortion (principal); D64.9 Anemia, unspecified; E78.5 Hyperlipidemia, unspecified; N39.0 Urinary tract infection, site not specified; E03.9 Hypothyroidism, unspecified; E55.9 Vitamin D deficiency, unspecified; Z3A.00 Weeks of gestation of pregnancy not specified
CPT/HCPCS: 36415; 80061; 81001; 82306; 82550; 83721; 83735; 84100; 84443; 84702; 85025; 85652; 86140; 87086

== ENCOUNTER → 2022-06-21 | Outpatient (CLI) | payer OTHER ==
[2022-06-21 22:50] LABS: Appearance,Urine Cloudy (Clear); Bilirubin,Urine Negative (Negative); Blood,Urine Large (Negative); Color,Urine Yellow (Yellow); Ketones,Urine Negative (Negative); Nitrite,Urine Negative (Negative); PH, Urine 5.5 (5.0-8.0); Specific Gravity,Urine 1.016 (1.001-1.030); Urobilinogen,Urine 0.2 (0.2,1.0)
[2022-06-21 23:04] LABS: HCT 38.9 % (37.2-46.3); HGB 12.4 g/dL (12.0-15.0); MCH 29.6 pg (27.0-32.0); MCHC 31.9 g/dL (32.0-37.0); MCV 92.8 fL (80.0-97.0); Mean Platelet Volume 11.2 fL (9.5-12.2); NRBC Per 100 WBC 0 /100 WBCS (0.0-0.0); Platelet Count 246 X 10*3/uL (140-440); RBC 4.19 X 10*6/uL (4.10-5.20); RDW 11.4 % (11.5-14.5); WBC 4.93 X 10*3/uL (4.50-10.00)
[2022-06-21 23:09] LABS: INR 1.04 (0.90-1.11); Prothrombin Time 11.7 sec (9.9-11.9)
[2022-06-22 00:05] LABS: ALT 15 U/L (8-44); AST 20 U/L (13-35); African American GFR (CKD) 134.2 (60.0-200.0); Albumin 4.8 g/dL (3.8-4.9); Albumin/Globulin Ratio 2.13 (1.60-3.17); Alkaline Phosphatase 43 U/L (41-126); BUN/Creat Ratio 27.59 Ratio (12.00-20.00); Blood Urea Nitrogen 16.5 mg/dL (9.0-27.0); Calcium 9.5 mg/dL (8.7-10.3); Carbon Dioxide 24.7 mmol/L (20.0-27.5); Chloride 101 mmol/L (96-109); Chol/HDL Ratio 2.96 Ratio; Follicle Stimulating Hormone 7.7 mIU/mL; Globulin 2.3 g/dL (1.6-3.3); Glucose 83 mg/dL (70-110); LDL Cholesterol,Calculated 130.7 mg/dL (0.0-131.0); Luteinizing Hormone 7.6 mIU/mL; Non-African American GFR(CKD) 115.8 (60.0-200.0); Potassium 4.3 mmol/L (3.5-5.5); Sodium 138 mmol/L (135-145); Total Protein 7.1 g/dL (6.2-8.2); VLDL Calculation 7.62 mg/dL (5.00-40.00)
[2022-06-22 00:16] LABS: Bacteria,Urine 3+ /HPF (None Seen)
== END | disposition home or self-care (01) ==
LOC: LABWHC1 15:25
PROVIDERS: ATTEND Internal Medicine
DX: Z13.0 Encounter for screening for diseases of the blood and blood-forming organs and certain disorders involving the immune mechanism (principal); Z13.29 Encounter for screening for other suspected endocrine disorder; D64.9 Anemia, unspecified; E78.5 Hyperlipidemia, unspecified; N39.0 Urinary tract infection, site not specified; N96 Recurrent pregnancy loss; E11.65 Type 2 diabetes mellitus with hyperglycemia; E55.9 Vitamin D deficiency, unspecified; N97.9 Female infertility, unspecified
CPT/HCPCS: 36415; 80053; 80061; 81001; 82306; 82397; 83001; 83002; 83036; 84443; 85027; 85610; 87086

== ENCOUNTER 2022-09-16 20:14 | Emergency (ER) | payer OTHER ==
[2022-09-16 21:11] VITALS: BP 107/65; PULSE 76; RESP 16; TEMP 97.9
--- NOTE | 2022-09-16 21:37 | ED ---
Abdominal Pain HPI - General Source: patient Mode of arrival: ambulatory <Carmelo Shelby - Last Filed: 09/16/22 21:37> <Aydin Song - Last Filed: 09/17/22 03:01> - General Chief Complaint: Abdominal Pain Stated Complaint: 8 weeks preg/abd pain - History of Present Illness Initial Comments: 37-year-old woman A6 proximally 8 weeks LMP 07/15 presents for abdominal pain. This not going for last 2 days. Denies vaginal bleeding. (Carmelo Shelby) 37-year-old feel presents with significant other for evaluation of pelvic cram ping 1 day. Patient has history of 6 miscarriages. Patient denies any vaginal bleeding. Cramping is intermittent located to the suprapubic area. (Aydin Song) - Related Data Home Medications Medication Instructions Recorded Confirmed Aspirin [Adult Low Dose Aspirin EC] 81 mg PO DAILY 12/03/19 06/03/21 Ferrous Sulfate [Iron] 325 tab PO DAILY 12/03/19 06/03/21 Folic Acid 0.8 mg PO DAILY 12/03/19 06/03/21 Pnv No.95/Ferrous Fum/Folic AC 1 tab PO DAILY 12/03/19 06/03/21 [ Multivitamin Tablet] Progesterone, Micronized 200 mg VAGINAL BID 12/03/19 06/03/21 [Progesterone] Allergies Allergy/AdvReac Type Severity Reaction Status Date / Time No Known Allergies Allergy Verified 09/16/22 21:11 Review of Systems ROS Other: All systems not noted in ROS Statement are negative. <Carmelo Shelby - Last Filed: 09/16/22 21:37> ROS Other: All systems not noted in ROS Statement are negative. <Aydin Song - Last Filed: 09/17/22 03:01> ROS Statement: Those systems with pertinent positive or pertinent negative responses have been documented in the HPI. Past Medical History Past Medical History: No Reported History Additional Past Medical History / Comment(s): OB history: first was a full term. Second was SAB at 8 weeks. Third was an SAB at 20 weeks. Fourth was an SAB at 6 weeks. This is her fifth . History of Any Multi-Drug Resistant Organisms: None Reported Past Surgical History: Section Past Anesthesia/Blood Transfusion Reactions: No Reported Reaction Past Psychological History: No Psychological Hx Reported Smoking Status: Never smoker Past Alcohol Use History: None Reported Past Drug Use History: None Reported - Past Family History Mother Family Medical History: No Reported History <Carmelo Shelby - Last Filed: 09/16/22 21:37> General Exam <Aydin Song - Last Filed: 09/17/22 03:01> - General Exam Comments Initial Comments: PHYSICAL EXAM: General Impression: Alert and oriented x3, not in acute distress HEENT: Normocephalic atraumatic, extra-ocular movements intact, pupils equal and reactive to light bilaterally, mucous membranes moist. Cardiovascular: Heart regular rate and rhythm Chest: Able to complete full sentences, no retractions, no tachypnea Abdomen: abdomen soft, non-tender, non-distended, no organomegaly Musculoskeletal:, no peripheral edema Motor: no focal deficits noted Neurological: CN II-XII grossly intact, no focal motor or sensory deficits noted Skin: Intact with no visualized rashes Psych: Normal affect and mood (Aydin Song) Course Vital Signs 09/16/22 21:04 Temperature 97.9 F Pulse Rate 76 Respiratory 16 Rate Blood Pressure 107/65 O2 Sat by Pulse 99 Oximetry Medical Decision Making - Lab Data Result diagrams: 09/16/22 22:33 09/16/22 22:40 <Aydin Song - Last Filed: 09/17/22 03:01> - Medical Decision Making Was pt. sent in by a medical professional or institution (, PA, SUPERVISOR AGRICULTURAL EDUCATION, urgent care, hospital, or alf...) When possible be specific @ -No Did you speak to anyone other than the patient for history (EMS, parent, family, police, friend...)? 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 She has had 6 prior miscarriages Did you review nursing and triage notes (agree or disagree)? Why? @ -I reviewed and agree with nursing and triage notes Were old charts reviewed (outside hosp., previous admission, EMS record, old EKG, old radiological studies, urgent care reports/EKG's, alf records)? Report findings @ -No old charts were reviewed Differential Diagnosis (chest pain, altered mental status, abdominal pain women, abdominal pain men, vaginal bleeding, musculoskeletal, weakness, fever, dyspnea, syncope, headache, dizziness, GI bleed, back pain, seizure, CVA, palpatations, mental health)? @ -Differential Abdominal Pain Women: Appendicitis, Cholecystitis, diverticulosis, ischemic bowel, pancreatitis, hepatitis, UTI, gastroenteritis, AAA, incarcerated hernia, bowel obstruction, constipation, inflammatory bowel, hepatitis, peptic ulcer disease, splenic infarction, perforated viscus, vulvitis, ovarian torsion, PID, kidney stone, placenta abruption, this is not meant to be an all-inclusive list EKG interpreted by me (3pts min.). @ -None done X-rays interpreted by me (1pt min.). @ -None done CT interpreted by me (1pt min.). @ -None done U/S interpreted by me (1pt. min.). @ -Intrauterine gestation with no cardiac activity What testing was considered but not performed or refused? (CT, X-rays, U/S, labs)? Why? @ -None What meds were considered but not given or refused? Why? @ -None Did you discuss the management of the patient with other professionals (professionals i.e. , PA, SUPERVISOR [employer] EDUCATION, lab, RT, psych nurse, social director, supervisor contingents, teacher, service officer, director case management)? Give summary @ -Imaging and clinical presentation discussed with Dr. Hart for outpatient follow-up Was smoking cessation discussed for >3mins.? @ -No Was critical care preformed (if so, how long)? @ -No Were there social determinants of health that impacted care today? How? (Homelessness, low income, unemployed, alcoholism, drug addiction, transportation, low edu. Level, literacy, decrease access to med. care, fpc, rehab)? @ -No Was there de-escalation of care discussed even if they declined (Discuss DNR or withdrawal of care, Hospice)? DNR status @ -No What co-morbidities impacted this encounter? (DM, HTN, Smoking, COPD, CAD, Cancer, CVA, ARF, Chemo, Hep., AIDS, mental health diagnosis, sleep apnea, morbid obesity)? @ -None Was patient admitted / discharged? Hospital course, mention meds given and route, prescriptions, significant lab abnormalities, going to OR and other pertinent info. @ -37-year-old female presents emergency part for pelvic pain. She is allegedly approximately 8 weeks . Vital signs are stable. Ultrasound s hows intrauterine with no cardiac activity. Clinical presentation consistent with miscarriage. Patient will be followed by Dr. Hart in the office on Sunday Undiagnosed new problem with uncertain prognosis? @ -No Drug Therapy requiring intensive monitoring for toxicity (Heparin, Nitro, Insulin, Cardizem)? @ -No Were any procedures done? @ -No Diagnosis/symptom? Acute, or Chronic, or Acute on Chronic? Uncomplicated (without systemic symptoms) or Complicated (systemic symptoms)? @ -Miscarriage Side effects of treatment? @ -No Exacerbation, Progression, or Severe Exacerbation? @ -No Poses a threat to life or bodily function? How? (Chest pain, USA, MA, pneumonia, PE, COPD, DKA, ARF, appy, cholecystitis, CVA, Diverticulitis, Homicidal, Suicidal, threat to staff... and all critical care pts) @ -No (Aydin Song) - Lab Data Lab Results 09/16/22 09/16/22 09/16/22 Range/Units 22:33 22:40 22:40 WBC 6.0 (3.8-10.6) k/uL RBC 3.70 L (3.80-5.40) m/uL Hgb 11.6 (11.4-16.0) gm/dL Hct 33.9 L (34.0-46.0) % MCV 91.6 (80.0-100.0) fL MCH 31.4 (25.0-35.0) pg MCHC 34.3 (31.0-37.0) g/dL RDW 11.4 L (11.5-15.5) % Plt Count 222 (150-450) k/uL MPV 8.2 Neutrophils % 58 % Lymphocytes % 35 % Monocytes % 5 % Eosinophils % 1 % Basophils % 0 % Neutrophils # 3.5 (1.3-7.7) k/uL Lymphocytes # 2.1 (1.0-4.8) k/uL Monocytes # 0.3 (0-1.0) k/uL Eosinophils # 0.1 (0-0.7) k/uL Basophils # 0.0 (0-0.2) k/uL Sodium 139 (137-145) mmol/L Potassium 3.7 (3.5-5.1) mmol/L Chloride 105 (98-107) mmol/L Carbon Dioxide 23 (22-30) mmol/L Anion Gap 11 mmol/L BUN 13 (7-17) mg/dL Creatinine 0.45 L (0.52-1.04) mg/dL Est GFR (CKD-EPI)AfAm >90 (>60 ml/min/1.73 sqM) Est GFR (CKD-EPI)NonAf >90 (>60 ml/min/1.73 sqM) Glucose 108 H (74-99) mg/dL Calcium 9.3 (8.4-10.2) mg/dL Total Bilirubin 0.5 (0.2-1.3) mg/dL AST 23 (14-36) U/L ALT 19 (4-34) U/L Alkaline Phosphatase 32 L (38-126) U/L Total Protein 7.3 (6.3-8.2) g/dL Albumin 4.5 (3.5-5.0) g/dL Lipase 84 (23-300) U/L HCG, Quant 03296.3 mIU/mL Urine Color Light Yellow Urine Appearance Clear (Clear) Urine pH 6.5 (5.0-8.0) Ur Specific [place] 1.007 (1.001-1.035) Urine Protein Negative (Negative) Urine Glucose (UA) Negative (Negative) Urine Ketones Negative (Negative) Urine Blood Small H (Negative) Urine Nitrite Negative (Negative) Urine Bilirubin Negative (Negative) Urine Urobilinogen <2.0 (<2.0) mg/dL Ur Leukocyte Esterase Small H (Negative) Urine RBC 7 H (0-5) /hpf Urine WBC 13 H (0-5) /hpf Ur Squamous Epith Cells 5 H (0-4) /hpf Urine Bacteria Many H (None) /hpf Urine Mucus Rare H (None) /hpf Disposition <Carmelo Shelby - Last Filed: 09/16/22 21:37> Is patient prescribed a controlled substance at d/c from ED?: No Time of Disposition: 03:01 <Aydin Song - Last Filed: 06/18/23 03:01> Clinical Impression: Miscarriage Disposition: HOME SELF-CARE Condition: Fair Instructions (If sedation given, give patient instructions): Miscarriage (ED) Referrals: Tsering Hart DO [Doctor of Osteopathic Medicine] - 1-2 days
--- NOTE | 2022-09-16 22:29 | US ---
EXAMINATION TYPE: Transabdominal DATE OF EXAM: 09/16/2022 10:12 PM COMPARISON: NONE CLINICAL INDICATION: Female, 37 years old with history of 8 weeks abdominal pain; Abdominal pain EXAM PERFORMED: Transabdominal (TA) EXAM MEASUREMENTS: GESTATIONAL AGE / DATING Physician Established: Not yet established Dates by LMP: (9 weeks/0 days) EDC: 04/21/23 Dates by First Scan: No previous this is first scan Dates by Current Scan for: (8 weeks/4 days) MATERNAL ANATOMY Uterus: 8.4 x 7.5 x 7.9cm Right Ovary: 2.3 x 1.5 x 1.3cm Left Ovary: 3.6 x 2.5 x 2.3cm Post CDS / Adnexa: wnl Presence of free fluid: no Presence of corpus luteal cyst: yes, left ovary = 2.0 x 1.8 x 1.7cm GESTATION / SURVEY CRL: 2.0cm (8 weeks/4 days) Yolk Sac (normal less than 6mm): not seen IUP: Unable to detect cardiac activity on today's scan. Date of LMP: 07/15/22 Beta HcG (if available): Not available at this time IMPRESSION: Intrauterine gestation without evidence for cardiac activity on today's exam which is suspicious for failed . Ultrasound age is discordant with the dates by last menstrual period.
[2022-09-16 22:53] LABS: Basophils % (A) 0 %; Eosinophils # (A) 0.1 k/uL (0-0.7); Eosinophils % (A) 1 %; HCT 33.9 % (34.0-46.0); HGB 11.6 gm/dL (11.4-16.0); Lymphocytes # (A) 2.1 k/uL (1.0-4.8); Lymphocytes % (A) 35 %; MCH 31.4 pg (25.0-35.0); MCHC 34.3 g/dL (31.0-37.0); MCV 91.6 fL (80.0-100.0); Mean Platelet Volume 8.2; Monocytes # (A) 0.3 k/uL (0-1.0); Monocytes % (A) 5 %; Neutrophils # (A) 3.5 k/uL (1.3-7.7); Neutrophils % (A) 58 %; Platelet Count 222 k/uL (150-450); RDW 11.4 % (11.5-15.5)
[2022-09-16 23:14] LABS: Appearance,Urine Clear (Clear); Bacteria,Urine Many /hpf; Bilirubin,Urine Negative (Negative); Blood,Urine Small (Negative); Color,Urine Light Yellow; Glucose,Urine (UA) Negative (Negative); Ketones,Urine Negative (Negative); Leukocyte Esterase,Urine Small (Negative); Mucus,Urine Rare /hpf; Nitrite,Urine Negative (Negative); PH, Urine 6.5 (5.0-8.0); Protein,Urine Negative (Negative); RBC,Urine 7 /hpf (0-5); Specific Gravity,Urine 1.007 (1.001-1.035); Squamous Epithelial Cell,Urine 5 /hpf (0-4); Urobilinogen,Urine <2.0 mg/dL (<2.0); WBC,Urine 13 /hpf (0-5)
[2022-09-17 00:50] LABS: ALT 19 U/L (4-34); AST 23 U/L (14-36); African American GFR (CKD) >90 (>60 ml/min/1.73 sqM); Albumin 4.5 g/dL (3.5-5.0); Alkaline Phosphatase 32 U/L (38-126); Anion Gap 11 mmol/L; Blood Urea Nitrogen 13 mg/dL (7-17); Calcium 9.3 mg/dL (8.4-10.2); Carbon Dioxide 23 mmol/L (22-30); Chloride 105 mmol/L (98-107); Glucose 108 mg/dL (74-99); Lipase 84 U/L (23-300); Non-African American GFR(CKD) >90 (>60 ml/min/1.73 sqM); Potassium 3.7 mmol/L (3.5-5.1); Sodium 139 mmol/L (137-145); Total Bilirubin 0.5 mg/dL (0.2-1.3); Total Protein 7.3 g/dL (6.3-8.2)
[2022-09-17 01:32] LABS: HCG,Quantitative Serum 19723.3 mIU/mL
== END 2022-09-17 03:25 | disposition home or self-care (01) ==
LOC: EC 20:14
DX: O03.9 Complete or unspecified spontaneous abortion without complication (principal)
CPT/HCPCS: 36415; 76801; 80053; 81001; 83690; 84702; 85025; 93005; 99284

== ENCOUNTER → 2022-09-20 | Outpatient (CLI) | payer OTHER ==
[2022-09-20 12:04] LABS: Basophils % (A) 0 %; Eosinophils # (A) 0.1 k/uL (0-0.7); Eosinophils % (A) 1 %; HCT 36.7 % (34.0-46.0); HGB 12.1 gm/dL (11.4-16.0); Lymphocytes # (A) 1.5 k/uL (1.0-4.8); Lymphocytes % (A) 33 %; MCH 30.3 pg (25.0-35.0); MCHC 32.9 g/dL (31.0-37.0); MCV 92.1 fL (80.0-100.0); Mean Platelet Volume 7.9; Monocytes # (A) 0.2 k/uL (0-1.0); Monocytes % (A) 4 %; Neutrophils # (A) 2.6 k/uL (1.3-7.7); Neutrophils % (A) 59 %; Platelet Count 235 k/uL (150-450); RBC 3.98 m/uL (3.80-5.40); RDW 11.6 % (11.5-15.5); WBC 4.4 k/uL (3.8-10.6)
== END | disposition home or self-care (01) ==
LOC: LABPAT 10:17
PROVIDERS: ATTEND Obstetrics & Gynecology
DX: Z01.812 Encounter for preprocedural laboratory examination (principal)
CPT/HCPCS: 36415; 85025

== ENCOUNTER 2022-09-21 11:34 | Day surgery (SDC) | payer OTHER ==
[2022-09-20 14:24] VITALS: BMI 21.9
--- NOTE | 2022-09-21 09:30 | P.HPOB ---
History of Present Illness H&P Date: 09/21/22 Chief Complaint: missed ab 37 year old presents for suction D&C after an 8 week US with no cardiac activity Review of Systems All systems: negative Constitutional: Denies chills, Denies fever Eyes: denies blurred vision, denies pain Ears, nose, mouth and throat: Denies headache, Denies sore throat Cardiovascular: Denies chest pain, Denies shortness of breath Respiratory: Denies cough Gastrointestinal: Denies abdominal pain, Denies diarrhea, Denies nausea, Denies vomiting Genitourinary: Denies dysuria, Denies hematuria Musculoskeletal: Denies myalgias Integumentary: Denies pruritus, Denies rash Neurological: Denies numbness, Denies weakness Psychiatric: Denies anxiety, Denies depression Endocrine: Denies fatigue, Denies weight change Past Medical History Past Medical History: Hyperlipidemia Additional Past Medical History / Comment(s): Hx Spontaneous X3. History of Any Multi-Drug Resistant Organisms: None Reported Past Surgical History: Section Past Anesthesia/Blood Transfusion Reactions: No Reported Reaction Past Psychological History: No Psychological Hx Reported Smoking Status: Never smoker Past Alcohol Use History: None Reported Past Drug Use History: None Reported - Past Family History Mother Family Medical History: No Reported History Medications and Allergies Home Medications Medication Instructions Recorded Confirmed Type No Known Home Medications 09/20/22 09/20/22 History Allergies Allergy/AdvReac Type Severity Reaction Status Date / Time No Known Allergies Allergy Verified 09/20/22 14:12 Exam Osteopathic Statement: *. No significant issues noted on an osteopathic structural exam other than those noted in the History and Physical/Consult. Heart: Regular rate and rhythm Lungs: Clear to auscultation bilaterally Abdomen: Soft, nontender Extremities: Negative Homans sign Assessment and Plan (1) Incomplete Status: Acute Code(s): O03.4 - INCOMPLETE SPONTANEOUS WITHOUT COMPLICATION SNOMED Code(s): 015213794 Plan: 1. suction D&C
[2022-09-21] MEDS ORDERED: ONDANSETRON 4 MG/2 ML VIAL ONE (12:20)
[2022-09-21] MEDS ORDERED: LACTATED RINGERS 1,000 ML IV ONE (12:24)
[2022-09-21] MEDS ORDERED: DEXAMETHASONE SOD PHOSPHATE 4 MG/ML 1 ML VIAL IV ONE ×2 (12:25→14:18)
[2022-09-21] MEDS ORDERED: MIDAZOLAM 2 MG/2 ML VIAL ONE (12:58)
[2022-09-21] MEDS ORDERED: LIDOCAINE 2% INJ 20 MG/ML (2 ML VIAL) ONE (12:58)
[2022-09-21] MEDS ORDERED: KETOROLAC 15 MG/ML 1 ML VIAL ONE (12:58)
[2022-09-21] MEDS ORDERED: fentaNYL (PF) 50 MCG/ML 2 ML AMP ONE (12:58)
[2022-09-21] MEDS ORDERED: PROPOFOL 10 MG/ML 20 ML VIAL IV ONE (12:58)
--- NOTE | 2022-09-21 13:31 | P.OP ---
Date of Procedure: 09/21/22 Preoperative Diagnosis: 1. missed Postoperative Diagnosis: 1. missed Procedure(s) Performed: Suction D&C Anesthesia: MAC Surgeon: Tsering Hart Estimated Blood Loss (ml): 100 IV fluids (ml): 300 Urine output (ml): 200 Pathology: other (Endometrial curettings) Condition: stable Disposition: PACU Operative Findings: Moderate amount products of conception. Description of Procedure: Patient taken the operating room where general anesthesia was obtained without difficulty. She is prepped and draped in normal sterile fashion dorsal lithotomy position, legs placed in the [employer] cane stirrups. Bladder was drained of all urine. Weighted speculum was placed the anterior lip of the uterus was grasped with a Allis clamp and the cervix was dilated to #10 Hegar dilator. A #10 curved suction curet was passed several times to obtain endometrial tissue. Sharp curet was gently used to ensure all tissue had been removed. The suction curet was introduced a few more times to ensure blood and tissue was removed. Hemostasis was assured. All instrument removed from the vagina. Patient procedure well, sponge management counts correct 2. She was taken to recovery in stable condition.
[2022-09-21 13:42] VITALS: TEMP 98
[2022-09-21] MEDS ORDERED: SCOPOLAMINE 1 MG/72 HR PATCH TRANSDERM ONE (14:18)
[2022-09-21] MEDS ORDERED: LACTATED RINGERS 1,000 ML IV SCH (14:18)
[2022-09-21] MEDS ORDERED: MIDAZOLAM 2 MG/2 ML VIAL IV PRN (14:18)
[2022-09-21] MEDS ORDERED: ONDANSETRON 4 MG/2 ML VIAL IVP ONE (14:18)
[2022-09-21] MEDS ORDERED: HYDROmorphone 0.5 MG/0.5 ML SYRINGE IVP PRN (14:18)
[2022-09-21 14:34] VITALS: BP 101/66; PULSE 66; RESP 16
== END 2022-09-21 15:03 | disposition home or self-care (01) ==
LOC: OR 11:34
PROVIDERS: ATTEND Obstetrics & Gynecology
DX: O02.1 Missed abortion (principal); E78.5 Hyperlipidemia, unspecified
CPT/HCPCS: 59820; 86900; 86901; 88305; 86850; J2250; J1100; J2405; J3010; J1885; J2704; J2001

== ENCOUNTER → 2022-11-09 | Outpatient (CLI) | payer OTHER ==
[2022-11-10 03:00] LABS: T4, Free (Free Thyroxine) 1.34 ng/dL (0.80-1.80)
[2022-11-10 06:12] LABS: Cardiolipin Ab IgG Interp Negative (Negative)
[2022-11-10 13:43] LABS: APTT 46 Sec(s) (<43); APTT 1:1 Mix 40 Sec(s) (<43); Dilute Russell Viper Venom 35 Sec(s) (<44)
== END | disposition home or self-care (01) ==
LOC: LABWHC1 15:57
PROVIDERS: ATTEND Obstetrics & Gynecology
DX: N96 Recurrent pregnancy loss (principal)
CPT/HCPCS: 36415; 81241; 84439; 84443; 85613; 85730; 86038; 86147

== ENCOUNTER → 2023-05-09 | Outpatient (CLI) | payer OTHER ==
[2023-05-10 02:41] LABS: Basophils # (A) 0.02 X 10*3/uL (0.00-0.10); Basophils % (A) 0.4 %; Eosinophils # (A) 0.03 X 10*3/uL (0.04-0.35); Eosinophils % (A) 0.5 %; HCT 37.9 % (37.2-46.3); HGB 12.6 g/dL (12.0-15.0); Immature Grans, Automated 0 %; Lymphocytes # (A) 1.91 X 10*3/uL (0.90-5.00); MCH 30.2 pg (27.0-32.0); MCHC 33.2 g/dL (32.0-37.0); MCV 90.9 FL (80.0-97.0); Mean Platelet Volume 10.6 FL (9.5-12.2); Monocytes # (A) 0.36 X 10*3/uL (0.20-1.00); Monocytes % (A) 6.6 %; NRBC Per 100 WBC 0 X 10*3/uL (0.00-0.01); Neutrophils # (A) 3.14 X 10*3/uL (1.80-7.70); Neutrophils % (A) 57.5 %; Platelet Count 246 X 10*3/uL (140-440); RBC 4.17 X 10*6/uL (4.10-5.20); RDW 11.9 % (11.5-14.5); WBC 5.46 X 10*3/uL (4.50-10.00)
[2023-05-10 02:47] LABS: Reticulocyte % 0.93 % (0.10-1.80)
[2023-05-10 03:12] LABS: % Iron Saturation 32.01 (12.00-45.00); Iron 121 UG/DL (50-170); Magnesium 2.1 mg/dL (1.5-2.4); Phosphorus 3.2 mg/dL (2.4-5.1); Total Iron Binding Capacity 378 UG/DL (228-460)
[2023-05-10 03:13] LABS: ALT 15 U/L (8-44); AST 17 U/L (13-35); Albumin 4.8 g/dL (3.8-4.9); Albumin/Globulin Ratio 2.09 Ratio (1.60-3.17); Alkaline Phosphatase 35 U/L (41-126); BUN/Creat Ratio 23.17 Ratio (12.00-20.00); Blood Urea Nitrogen 13.9 mg/dL (9.0-27.0); Calcium 9.8 mg/dL (8.7-10.3); Carbon Dioxide 24.1 mmol/L (21.6-31.8); Chloride 103 mmol/L (96-109); Ferritin 76.9 ng/mL (10.0-291.0); Globulin 2.3 g/dL (1.6-3.3); Glucose 88 mg/dL (70-110); Potassium 4.4 mmol/L (3.5-5.5); Sodium 139 mmol/L (135-145); Total Protein 7.1 g/dL (6.2-8.2)
[2023-05-10 03:48] LABS: Erythrocyte Sedimentation Rate 4 mm/Hr (0-20)
== END | disposition home or self-care (01) ==
LOC: LABWHC1 16:11
PROVIDERS: ATTEND Internal Medicine
DX: N96 Recurrent pregnancy loss (principal); D50.9 Iron deficiency anemia, unspecified; E55.9 Vitamin D deficiency, unspecified; E78.5 Hyperlipidemia, unspecified
CPT/HCPCS: 36415; 80053; 82306; 82607; 82728; 82746; 83540; 83550; 83735; 84100; 84443; 85025; 85045; 85652

== ENCOUNTER → 2023-09-06 | Outpatient (CLI) | payer OTHER | END | disposition home or self-care (01) | LOC: LABWHC1 17:11 | PROVIDERS: ATTEND Obstetrics & Gynecology Reproductive Endocrinology | DX: Z32.00 Encounter for pregnancy test, result unknown (principal) | CPT/HCPCS: 36415; 84702 ==

== ENCOUNTER → 2023-09-12 | Outpatient (CLI) | payer OTHER ==
[2023-09-12 19:07] LABS: HCG,Quantitative Serum 14888.6 mIU/mL
== END | disposition home or self-care (01) ==
LOC: LABWHC1 16:01
PROVIDERS: ATTEND Obstetrics & Gynecology Reproductive Endocrinology
DX: O26.20 Pregnancy care for patient with recurrent pregnancy loss, unspecified trimester (principal); Z3A.00 Weeks of gestation of pregnancy not specified
CPT/HCPCS: 36415; 82306; 82670; 84144; 84443; 84702

== ENCOUNTER 2023-10-11 17:00 | Emergency (ER) | payer OTHER ==
[2023-10-11 17:26] VITALS: BP 93/59; PULSE 75; RESP 16; TEMP 97.6
--- NOTE | 2023-10-11 20:01 | US ---
EXAMINATION TYPE: Transabdominal DATE OF EXAM: 10/11/2023 7:40 PM COMPARISON: NONE for this CLINICAL INDICATION: Female, 38 years old with history of ab pain; Patients partner states OB was valentín ble to see movement. Abd pain. Hx of 7 miscarriages EXAM PERFORMED: Transabdominal (TA) EXAM MEASUREMENTS: GESTATIONAL AGE / DATING Physician Established: (10weeks/0 days) EDC: 05/08/2024 Dates by LMP: (10weeks/0 days) EDC: 05/08/2024 Dates by First Scan: No previous this is first scan Dates by Current Scan for: (8 weeks/1 days) EDC: 05/21/2024 MATERNAL ANATOMY Uterus: 7.9 x 7.2 x 6.8cm. appears wnl as best seen Right Ovary: 2.2 x 1.7 x 2.0cm. wnl as best seen Left Ovary: 2.3 x 1.5 x 1.8cm wnl as best seen Post CDS / Adnexa: wnl Presence of free fluid: no Presence of corpus luteal cyst: not seen Presence of subchorionic bleed: no GESTATION / SURVEY CRL: 1.8 cm 8 weeks/1 days) Yolk Sac (normal less than 6mm): not visualized Heart Rate: absence of heart tones Rhythm: not seen IUP: No cardiac activity noted on today's scan. Question demise. Date of LMP: 08/02/2023 Beta HcG (if available): Not available at this time IMPRESSION: Intrauterine gestation remains without cardiac activity findings are now most compatible with d emise stenosis.
--- NOTE | 2023-10-11 20:37 | ED ---
General Adult HPI - General Chief complaint: Recheck/Abnormal Lab/Rx Stated complaint: 8wks preg, sent for lab work Time Seen by Provider: 10/11/23 18:56 Source: patient, RN notes reviewed, old records reviewed Mode of arrival: ambulatory Limitations: no limitations - History of Present Illness Initial comments: 38-year-old female with known demise presents for evaluation, repeat ultrasound and repeat beta-hCG level. Patient does not speak [place] but her is at bedside who gives a detailed history. Patient has no vaginal bleeding, no abdominal pain. She was given an order by her archeologist classical for repeat beta-hCG and ultrasound and I believe they accidentally presented to the emergency department to have this testing done. The does indicate that there is plan for removal of the fetus on the which is 5 days from now. - Related Data Previous Rx's Medication Instructions Recorded Ibuprofen [Motrin] 600 mg PO Q6HR PRN #30 tab 09/21/22 Allergies Allergy/AdvReac Type Severity Reaction Status Date / Time No Known Allergies Allergy Verified 10/11/23 17:22 Review of Systems ROS Statement: Those systems with pertinent positive or pertinent negative responses have been documented in the HPI. ROS Other: All systems not noted in ROS Statement are negative. Past Medical History Past Medical History: Hyperlipidemia Additional Past Medical History / Comment(s): Hx Spontaneous X3. History of Any Multi-Drug Resistant Organisms: None Reported Past Surgical History: Section Past Anesthesia/Blood Transfusion Reactions: No Reported Reaction Past Psychological History: No Psychological Hx Reported Smoking Status: Never smoker Past Alcohol Use History: None Reported Past Drug Use History: None Reported - Past Family History Mother Family Medical History: No Reported History General Exam Limitations: no limitations General appearance: alert, in no apparent distress Head exam: Present: atraumatic, normocephalic Eye exam: Present: normal appearance, PERRL ENT exam: Present: normal exam Neck exam: Present: normal inspection. Absent: tenderness, meningismus Respiratory exam: Present: normal lung sounds bilaterally. Absent: respiratory distress, wheezes Cardiovascular Exam: Present: regular rate, normal rhythm GI/Abdominal exam: Present: soft. Absent: distended, tenderness, guarding Extremities exam: Present: normal inspection Neurological exam: Present: alert, CN II-XII intact. Absent: oriented X3, motor sensory deficit Psychiatric exam: Present: normal affect, normal mood Skin exam: Present: warm, dry, intact. Absent: cyanosis, diaphoretic Course Vital Signs 10/11/23 17:22 Temperature 97.6 F Pulse Rate 75 Respiratory 16 Rate Blood Pressure 93/59 O2 Sat by Pulse 98 Oximetry Medical Decision Making - Medical Decision Making Was pt. sent in by a medical professional or institution (AVINASH Moncada, MACHINE MAINTENANCE SUPERVISOR, urgent care, hospital, or assisted...) When possible be specific @ -No Did you speak to anyone other than the patient for history (EMS, parent, family, police, friend...)? What history was obtained from this source @ -No Did you review nursing and triage notes (agree or disagree)? Why? @ -I reviewed and agree with nursing and triage notes Were old charts reviewed (outside hosp., previous admission, EMS record, old EKG, old radiological studies, urgent care reports/EKG's, assisted records)? Report findings @ -No old charts were reviewed Differential Diagnosis: demise, missed miscarriage EKG interpreted by me (3pts min.). @ -As above X-rays interpreted by me (1pt min.). @ -None done CT interpreted by me (1pt min.). @ -None done U/S interpreted by me (1pt. min.). @Ultrasound continues to show demise with retained tissue What testing was considered but not performed or refused? (CT, X-rays, U/S, labs)? Why? @ -None What meds were considered but not given or refused? Why? @ -None Did you discuss the management of the patient with other professionals (professionals i.e. AVINASH Moncada, MACHINE MAINTENANCE SUPERVISOR, lab, RT, psych nurse, manager social, ruling machine feeder, teacher, chief client officer, rn case manager)? Give summary @ -No Was smoking cessation discussed for >3mins.? @ -No Was critical care preformed (if so, how long)? @ -No Were there social determinants of health that impacted care today? How? (Homelessness, low income, unemployed, alcoholism, drug addiction, transportation, low edu. Level, literacy, decrease access to med. care, [facility], rehab)? @ -No Was there de-escalation of care discussed even if they declined (Discuss DNR or withdrawal of care, Hospice)? DNR status @ -No What co-morbidities impacted this encounter? (DM, HTN, Smoking, COPD, CAD, Cancer, CVA, ARF, Chemo, Hep., AIDS, mental health diagnosis, sleep apnea, morbid obesity)? @ -None Was patient admitted / discharged? Hospital course, mention meds given and route, prescriptions, significant lab abnormalities, going to OR and other pertinent info. @ -[38-year-old female with missed miscarriage who is following with obstetrics who was given an order for hCG and ultrasound which was obtained in the emergency department. Patient and are informed of the results and the need to continue to follow-up with the archeologist classical who is managing this patient currently. Undiagnosed new problem with uncertain prognosis? @ -No Drug Therapy requiring intensive monitoring for toxicity (Heparin, Nitro, Insulin, Cardizem)? @ -No Were any procedures done? @ -No Diagnosis/symptom? @ -[Missed miscarriage Acute, or Chronic, or Acute on Chronic? @Acute Uncomplicated (without systemic symptoms) or Complicated (systemic symptoms)? @ -Default Side effects of treatment? @ -No Exacerbation, Progression, or Severe Exacerbation? @ -No Poses a threat to life or bodily function? How? (Chest pain, [place], PA, pneumonia, PE, COPD, DKA, ARF, appy, cholecystitis, CVA, Diverticulitis, Homicidal, Suicidal, threat to staff... and all critical care pts) @ -[Low risk at this time - Lab Data Result diagrams: 10/11/23 20:43 10/11/23 20:43 Lab Results 10/11/23 10/11/23 10/11/23 Range/Units 20:43 20:43 20:43 WBC 6.4 (3.8-10.6) k/uL RBC 3.90 (3.80-5.40) m/uL Hgb 12.5 (11.4-16.0) gm/dL Hct 36.5 (34.0-46.0) % MCV 93.6 (80.0-100.0) fL MCH 32.0 (25.0-35.0) pg MCHC 34.2 (31.0-37.0) g/dL RDW 11.5 (11.5-15.5) % Plt Count 223 (150-450) k/uL MPV 8.1 Neutrophils % 62 % Lymphocytes % 32 % Monocytes % 3 % Eosinophils % 1 % Basophils % 0 % Neutrophils # 4.0 (1.3-7.7) k/uL Lymphocytes # 2.0 (1.0-4.8) k/uL Monocytes # 0.2 (0-1.0) k/uL Eosinophils # 0.1 (0-0.7) k/uL Basophils # 0.0 (0-0.2) k/uL Sodium (137-145) mmol/L Potassium (3.5-5.1) mmol/L Chloride (98-107) mmol/L Carbon Dioxide (22-30) mmol/L Anion Gap mmol/L BUN (7-17) mg/dL Creatinine (0.52-1.04) mg/dL Est GFR (CKD-EPI)AfAm (>60 ml/min/1.73 sqM) Est GFR (CKD-EPI)NonAf (>60 ml/min/1.73 sqM) Glucose (74-99) mg/dL Calcium (8.4-10.2) mg/dL Total Bilirubin (0.2-1.3) mg/dL AST (14-36) U/L ALT (4-34) U/L Alkaline Phosphatase (38-126) U/L Total Protein (6.3-8.2) g/dL Albumin (3.5-5.0) g/dL HCG, Quant mIU/mL Urine Color Light Yellow Urine Appearance Cloudy H (Clear) Urine pH 6.0 (5.0-8.0) Ur Specific [place] 1.022 (1.001-1.035) Urine Protein Negative (Negative) Urine Glucose (UA) Negative (Negative) Urine Ketones Negative (Negative) Urine Blood Small H (Negative) Urine Nitrite Negative (Negative) Urine Bilirubin Negative (Negative) Urine Urobilinogen <2.0 (<2.0) mg/dL Ur Leukocyte Esterase Negative (Negative) Urine RBC 32 H (0-5) /hpf Urine WBC 4 (0-5) /hpf Ur Squamous Epith Cells 5 H (0-4) /hpf Urine Bacteria Rare H (None) /hpf Urine Mucus Occasional H (None) /hpf Urine HCG, Qual Detected (Not Detectd) 10/11/23 Range/Units 20:43 WBC (3.8-10.6) k/uL RBC (3.80-5.40) m/uL Hgb (11.4-16.0) gm/dL Hct (34.0-46.0) % MCV (80.0-100.0) fL MCH (25.0-35.0) pg MCHC (31.0-37.0) g/dL RDW (11.5-15.5) % Plt Count (150-450) k/uL MPV Neutrophils % % Lymphocytes % % Monocytes % % Eosinophils % % Basophils % % Neutrophils # (1.3-7.7) k/uL Lymphocytes # (1.0-4.8) k/uL Monocytes # (0-1.0) k/uL Eosinophils # (0-0.7) k/uL Basophils # (0-0.2) k/uL Sodium 135 L (137-145) mmol/L Potassium 3.9 (3.5-5.1) mmol/L Chloride 106 (98-107) mmol/L Carbon Dioxide 21 L (22-30) mmol/L Anion Gap 8 mmol/L BUN 12 (7-17) mg/dL Creatinine 0.39 L (0.52-1.04) mg/dL Est GFR (CKD-EPI)AfAm >90 (>60 ml/min/1.73 sqM) Est GFR (CKD-EPI)NonAf >90 (>60 ml/min/1.73 sqM) Glucose 79 (74-99) mg/dL Calcium 9.7 (8.4-10.2) mg/dL Total Bilirubin 1.4 H (0.2-1.3) mg/dL AST 25 (14-36) U/L ALT 16 (4-34) U/L Alkaline Phosphatase 29 L (38-126) U/L Total Protein 7.3 (6.3-8.2) g/dL Albumin 4.7 (3.5-5.0) g/dL HCG, Quant 03115.6 mIU/mL Urine Color Urine Appearance (Clear) Urine pH (5.0-8.0) Ur Specific [place] (1.001-1.035) Urine Protein (Negative) Urine Glucose (UA) (Negative) Urine Ketones (Negative) Urine Blood (Negative) Urine Nitrite (Negative) Urine Bilirubin (Negative) Urine Urobilinogen (<2.0) mg/dL Ur Leukocyte Esterase (Negative) Urine RBC (0-5) /hpf Urine WBC (0-5) /hpf Ur Squamous Epith Cells (0-4) /hpf Urine Bacteria (None) /hpf Urine Mucus (None) /hpf Urine HCG, Qual (Not Detectd) Disposition Clinical Impression: Missed Disposition: HOME SELF-CARE Condition: Fair Instructions (If sedation given, give patient instructions): Miscarriage (ED) Is patient prescribed a controlled substance at d/c from ED?: No Referrals: Choco Isbell MD [Primary Care Provider] - 1-2 days Time of Disposition: 21:10
[2023-10-11 20:59] LABS: Basophils % (A) 0 %; Eosinophils # (A) 0.1 k/uL (0-0.7); Eosinophils % (A) 1 %; HCT 36.5 % (34.0-46.0); HGB 12.5 gm/dL (11.4-16.0); Lymphocytes % (A) 32 %; MCHC 34.2 g/dL (31.0-37.0); MCV 93.6 fL (80.0-100.0); Mean Platelet Volume 8.1; Monocytes # (A) 0.2 k/uL (0-1.0); Monocytes % (A) 3 %; Neutrophils % (A) 62 %; Platelet Count 223 k/uL (150-450); RDW 11.5 % (11.5-15.5); WBC 6.4 k/uL (3.8-10.6)
[2023-10-11 21:10] LABS: Appearance,Urine Cloudy (Clear); Bacteria,Urine Rare /hpf; Bilirubin,Urine Negative (Negative); Blood,Urine Small (Negative); Color,Urine Light Yellow; Glucose,Urine (UA) Negative (Negative); Ketones,Urine Negative (Negative); Leukocyte Esterase,Urine Negative (Negative); Mucus,Urine Occasional /hpf; Nitrite,Urine Negative (Negative); Protein,Urine Negative (Negative); RBC,Urine 32 /hpf (0-5); Specific Gravity,Urine 1.022 (1.001-1.035); Squamous Epithelial Cell,Urine 5 /hpf (0-4); Urobilinogen,Urine <2.0 mg/dL (<2.0); WBC,Urine 4 /hpf (0-5)
[2023-10-11 21:23] LABS: ALT 16 U/L (4-34); AST 25 U/L (14-36); African American GFR (CKD) >90 (>60 ml/min/1.73 sqM); Albumin 4.7 g/dL (3.5-5.0); Alkaline Phosphatase 29 U/L (38-126); Anion Gap 8 mmol/L; Blood Urea Nitrogen 12 mg/dL (7-17); Calcium 9.7 mg/dL (8.4-10.2); Carbon Dioxide 21 mmol/L (22-30); Chloride 106 mmol/L (98-107); Glucose 79 mg/dL (74-99); Non-African American GFR(CKD) >90 (>60 ml/min/1.73 sqM); Potassium 3.9 mmol/L (3.5-5.1); Sodium 135 mmol/L (137-145); Total Bilirubin 1.4 mg/dL (0.2-1.3); Total Protein 7.3 g/dL (6.3-8.2)
[2023-10-11 22:06] LABS: HCG,Quantitative Serum 13109.6 mIU/mL
== END 2023-10-11 22:31 | disposition home or self-care (01) ==
LOC: EC 17:00
DX: O09.91 Supervision of high risk pregnancy, unspecified, first trimester (principal); O02.1 Missed abortion; Z3A.08 8 weeks gestation of pregnancy
CPT/HCPCS: 36415; 76801; 80053; 81001; 81025; 84702; 85025; 99284

== ENCOUNTER 2023-10-17 18:14 | Inpatient (IN) | payer OTHER ==
--- NOTE | 2023-10-17 19:23 | ED ---
Abdominal Pain HPI - General Chief Complaint: Abdominal Pain Stated Complaint: abd pain after surgery Time Seen by Provider: 10/17/23 19:21 Source: patient, RN notes reviewed Mode of arrival: ambulatory Limitations: language barrier - History of Present Illness Initial Comments: 38-year-old female presenting with a chief complaint of generalized abdominal pain. Patient speaks broken Moroccan and daughter is translating and aiding in HPI. They state yesterday patient had a D&C due to demise. Patient was approximately 9 weeks gestation at that time. Procedure was done in [place], [place] by Dr. Jose. She states today she has been having extreme generalized abdominal pain and bloating. She does report mild vaginal bleeding compared it to her menstrual cycle. She denies any constipation, diarrhea, nausea, vomiting, fevers or chills. Denies any dizziness, lightheadedness, chest pain or shortness of breath. She does report pain with deep inspiration. - Related Data Previous Rx's Medication Instructions Recorded Ibuprofen [Motrin] 600 mg PO Q6HR PRN #30 tab 09/21/22 Allergies Allergy/AdvReac Type Severity Reaction Status Date / Time No Known Allergies Allergy Verified 10/17/23 18:18 Review of Systems ROS Statement: Those systems with pertinent positive or pertinent negative responses have been documented in the HPI. ROS Other: All systems not noted in ROS Statement are negative. Past Medical History Past Medical History: Hyperlipidemia Additional Past Medical History / Comment(s): Hx Spontaneous X3. History of Any Multi-Drug Resistant Organisms: None Reported Past Surgical History: Section Past Anesthesia/Blood Transfusion Reactions: No Reported Reaction Past Psychological History: No Psychological Hx Reported Smoking Status: Never smoker Past Alcohol Use History: None Reported Past Drug Use History: None Reported - Past Family History Mother Family Medical History: No Reported History General Exam Limitations: no limitations General appearance: alert, in no apparent distress Respiratory exam: Present: normal lung sounds bilaterally. Absent: respiratory distress, wheezes, rales, rhonchi, stridor Cardiovascular Exam: Present: regular rate, normal rhythm, normal heart sounds. Absent: systolic murmur, diastolic murmur, rubs, gallop, clicks GI/Abdominal exam: Present: soft, tenderness (Generalized), normal bowel sounds Skin exam: Present: warm, dry, intact, normal color. Absent: rash Course Vital Signs 07/10/17/23 10/17/23 18:15 22:07 22:25 Temperature 98 F Pulse Rate 74 86 Respiratory 20 18 Rate Blood Pressure 97/60 108/68 109/63 O2 Sat by Pulse 99 99 100 Oximetry 10/17/23 10/17/23 23:00 23:27 Temperature Pulse Rate 84 Respiratory 18 Rate Blood Pressure 106/65 100/63 O2 Sat by Pulse 100 Oximetry - Reevaluation(s) Reevaluation #1: 10/17/23 22:28 Case discussed with on-call CYLINDER SANDER OPERATOR, Dr. Hart, who advises on observation admission and trending hemoglobin. Patient kept NPO. Medical Decision Making - Medical Decision Making Was pt. sent in by a medical professional or institution (, PA, ELECTRO MECHANICAL ASSEMBLER, urgent care, hospital, or custodial...) When possible be specific @ -No Did you speak to anyone other than the patient for history (EMS, parent, family, police, friend...)? What history was obtained from this source @ -Daughter aiding in HPI and past medical history. Patient speaks broken Moroccan and requires a ecclesiastical worker. Did you review nursing and triage notes (agree or disagree)? Why? @ -I reviewed and agree with nursing and triage notes Were old charts reviewed (outside hosp., previous admission, EMS record, old EKG, old radiological studies, urgent care reports/EKG's, custodial records)? Report findings @ -Yes, I reviewed ER visit and laboratory studies from 10-11-2023. Differential Diagnosis (chest pain, altered mental status, abdominal pain women, abdominal pain men, vaginal bleeding, weakness, fever, dyspnea, syncope, headache, dizziness, GI bleed, back pain, seizure, CVA, palpatations, mental health, musculoskeletal)? @ -Differential Abdominal Pain Women: Appendicitis, Cholecystitis, diverticulosis, ischemic bowel, pancreatitis, hepatitis, UTI, gastroenteritis, AAA, incarcerated hernia, bowel obstruction, constipation, inflammatory bowel, hepatitis, peptic ulcer disease, splenic infarction, perforated viscus, vulvitis, ovarian torsion, PID, kidney stone, placenta abruption, this is not meant to be an all-inclusive list EKG interpreted by me (3pts min.). @ -None X-rays interpreted by me (1pt min.). @ -None done CT interpreted by me (1pt min.). @ -CT abdomen pelvis remarkable for a moderate volume hemoperitoneum with findings possibly related to perforation of the uterus secondary to recent intervention. No discrete pneumoperitoneum. U/S interpreted by me (1pt. min.). @ -None done What testing was considered but not performed or refused? (CT, X-rays, U/S, labs)? Why? @ -None What meds were considered but not given or refused? Why? @ -None Did you discuss the management of the patient with other professionals (professionals i.e. , PA, ELECTRO MECHANICAL ASSEMBLER, lab, RT, psych nurse, social staff worker, polarity tester, teacher, postal delivery officer, lining caser)? Give summary @ -Yes, case discussed with on-call CYLINDER SANDER OPERATOR, Dr. Hart, who advises on admission. Was smoking cessation discussed for >3mins.? @ -No Was critical care preformed (if so, how long)? @ -No Were there social determinants of health that impacted care today? How? ( Homelessness, low income, unemployed, alcoholism, drug addiction, transportation, low edu. Level, literacy, decrease access to med. care, fpc, rehab)? @ -Yes, patient speaks very little Moroccan and is requiring a ecclesiastical worker. Project Drilling Engineer is her daughter. Was there de-escalation of care discussed even if they declined (Discuss DNR or withdrawal of care, Hospice)? DNR status @ -No What co-morbidities impacted this encounter? (DM, HTN, Smoking, COPD, CAD, Cancer, CVA, ARF, Chemo, Hep., AIDS, mental health diagnosis, sleep apnea, morbid obesity)? @ -None Was patient admitted / discharged? Hospital course, mention meds given and route, prescriptions, significant lab abnormalities, going to OR and other pertinent info. @ -Admitted. 38-year-old female presented to the ER with a chief complaint of abdominal pain. Patient underwent a D&C by Dr. Jose in [place], [place] for demise yesterday. History and physical exam completed. Vitals upon arrival remarkable for temperature 98, heart rate 74, respirate 20, blood pressure 97/60, oxygen saturation 99% on room air. Same remarkable for generalized abdominal tenderness with guarding. Normal bowel sounds. Patient no signs of acute distress and nontoxic-appearing. Laboratory studies obtained remarkable for hemoglobin 8.5 which is significantly decreased from 7-11-2024 at 12.5. Serum hCG 2031.3. Urine analysis hemorrhagic with large blood and trace leukocyte esterases which is likely contaminated from vaginal bleeding. CT abdomen pelvis due to abdominal pain. CT concerning of a moderate volume hemoperitoneum with findings possibly related to perforation of the uterus secondary to recent intervention. No discrete pneumoperitoneum. Patient received 1 L IV fluids in the ER. Admission considered for hemoperitoneum. Case discussed with on-call CYLINDER SANDER OPERATOR, Dr. Hart, who accepts admission. Patient agreeable for blood transfusion. Patient received 1 unit in the ER. Upon reevaluation, patient resting comfortably in exam room in no signs of acute distress. Results discussed with patient, all questions answered. Results also discussed with over the phone per patient's request. Patient admitted in stable condition for further treatment. Case discussed with ED attending, . Undiagnosed new problem with uncertain prognosis? @ -Yes Drug Therapy requiring intensive monitoring for toxicity (Heparin, Nitro, Insulin, Cardizem)? @ -No Were any procedures done? @ -No Diagnosis/symptom? @ -Hemoperitoneum/acute blood loss anemia Acute, or Chronic, or Acute on Chronic? @ -Acute Uncomplicated (without systemic symptoms) or Complicated (systemic symptoms)? @ -Complicated Side effects of treatment? @ -No Exacerbation, Progression, or Severe Exacerbation? @ -No Poses a threat to life or bodily function? How? (Chest pain, USA, NC, pneumonia, PE, COPD, DKA, ARF, appy, cholecystitis, CVA, Diverticulitis, Homicidal, Suicidal, threat to staff... and all critical care pts) @ -Yes, acute blood loss anemia can lead to hypovolemic shock which is life- threatening. - Lab Data Result diagrams: 10/17/23 19:35 10/17/23 19:35 Lab Results 10/17/23 10/17/23 10/17/23 Range/Units 19:35 19:35 19:35 WBC 6.5 (3.8-10.6) k/uL RBC 2.67 L (3.80-5.40) m/uL Hgb 8.5 L D (11.4-16.0) gm/dL Hct 25.3 L (34.0-46.0) % MCV 94.7 (80.0-100.0) fL MCH 31.8 (25.0-35.0) pg MCHC 33.6 (31.0-37.0) g/dL RDW 11.6 (11.5-15.5) % Plt Count 191 (150-450) k/uL MPV 8.3 Neutrophils % 65 % Lymphocytes % 30 % Monocytes % 3 % Eosinophils % 1 % Basophils % 0 % Neutrophils # 4.2 (1.3-7.7) k/uL Lymphocytes # 2.0 (1.0-4.8) k/uL Monocytes # 0.2 (0-1.0) k/uL Eosinophils # 0.0 (0-0.7) k/uL Basophils # 0.0 (0-0.2) k/uL Sodium 140 (137-145) mmol/L Potassium 4.1 (3.5-5.1) mmol/L Chloride 109 H (98-107) mmol/L Carbon Dioxide 23 (22-30) mmol/L Anion Gap 8 mmol/L BUN 12 (7-17) mg/dL Creatinine 0.51 L (0.52-1.04) mg/dL Est GFR (CKD-EPI)AfAm >90 (>60 ml/min/1.73 sqM) Est GFR (CKD-EPI)NonAf >90 (>60 ml/min/1.73 sqM) Glucose 86 (74-99) mg/dL Calcium 9.3 (8.4-10.2) mg/dL Total Bilirubin 0.5 (0.2-1.3) mg/dL AST 18 (14-36) U/L ALT 13 (4-34) U/L Alkaline Phosphatase 32 L (38-126) U/L Total Protein 6.4 (6.3-8.2) g/dL Albumin 4.2 (3.5-5.0) g/dL HCG, Quant 2032.3 mIU/mL Urine Color Colorless Urine Appearance Clear (Clear) Urine pH 6.0 (5.0-8.0) Ur Specific [place] 1.004 (1.001-1.035) Urine Protein Negative (Negative) Urine Glucose (UA) Negative (Negative) Urine Ketones Negative (Negative) Urine Blood Large H (Negative) Urine Nitrite Negative (Negative) Urine Bilirubin Negative (Negative) Urine Urobilinogen <2.0 (<2.0) mg/dL Ur Leukocyte Esterase Trace H (Negative) Urine RBC 1 (0-5) /hpf Urine WBC 2 (0-5) /hpf Ur Squamous Epith Cells 3 (0-4) /hpf Urine Bacteria Occasional H (None) /hpf Blood Type Blood Type Recheck Bld Type Recheck Status Antibody Screen Crossmatch Spec Expiration Date 10/17/23 Range/Units 21:49 WBC (3.8-10.6) k/uL RBC (3.80-5.40) m/uL Hgb (11.4-16.0) gm/dL Hct (34.0-46.0) % MCV (80.0-100.0) fL MCH (25.0-35.0) pg MCHC (31.0-37.0) g/dL RDW (11.5-15.5) % Plt Count (150-450) k/uL MPV Neutrophils % % Lymphocytes % % Monocytes % % Eosinophils % % Basophils % % Neutrophils # (1.3-7.7) k/uL Lymphocytes # (1.0-4.8) k/uL Monocytes # (0-1.0) k/uL Eosinophils # (0-0.7) k/uL Basophils # (0-0.2) k/uL Sodium (137-145) mmol/L Potassium (3.5-5.1) mmol/L Chloride (98-107) mmol/L Carbon Dioxide (22-30) mmol/L Anion Gap mmol/L BUN (7-17) mg/dL Creatinine (0.52-1.04) mg/dL Est GFR (CKD-EPI)AfAm (>60 ml/min/1.73 sqM) Est GFR (CKD-EPI)NonAf (>60 ml/min/1.73 sqM) Glucose (74-99) mg/dL Calcium (8.4-10.2) mg/dL Total Bilirubin (0.2-1.3) mg/dL AST (14-36) U/L ALT (4-34) U/L Alkaline Phosphatase (38-126) U/L Total Protein (6.3-8.2) g/dL Albumin (3.5-5.0) g/dL HCG, Quant mIU/mL Urine Color Urine Appearance (Clear) Urine pH (5.0-8.0) Ur Specific [place] (1.001-1.035) Urine Protein (Negative) Urine Glucose (UA) (Negative) Urine Ketones (Negative) Urine Blood (Negative) Urine Nitrite (Negative) Urine Bilirubin (Negative) Urine Urobilinogen (<2.0) mg/dL Ur Leukocyte Esterase (Negative) Urine RBC (0-5) /hpf Urine WBC (0-5) /hpf Ur Squamous Epith Cells (0-4) /hpf Urine Bacteria (None) /hpf Blood Type A Positive Blood Type Recheck A Pos Bld Type Recheck Status No Antibody Screen NEGATIVE Crossmatch See Detail Spec Expiration Date 10/20/2023 7711 - Radiology Data Radiology results: report reviewed, image reviewed Disposition Clinical Impression: Hemoperitoneum, Anemia Disposition: ADMITTED IP TO THIS HOSP Condition: Stable Time of Disposition: 22:10
[2023-10-17] MEDS: SODIUM CHLORIDE 0.9% 1,000 ML IV STA (20:01)
[2023-10-17] MEDS: ACETAMINOPHEN TAB 325 MG TAB PO STA (20:01)
[2023-10-17 20:03] LABS: Appearance,Urine Clear (Clear); Bacteria,Urine Occasional /hpf; Bilirubin,Urine Negative (Negative); Blood,Urine Large (Negative); Color,Urine Colorless; Glucose,Urine (UA) Negative (Negative); Ketones,Urine Negative (Negative); Leukocyte Esterase,Urine Trace (Negative); Nitrite,Urine Negative (Negative); Protein,Urine Negative (Negative); RBC,Urine 1 /hpf (0-5); Specific Gravity,Urine 1.004 (1.001-1.035); Squamous Epithelial Cell,Urine 3 /hpf (0-4); Urobilinogen,Urine <2.0 mg/dL (<2.0); WBC,Urine 2 /hpf (0-5)
[2023-10-17 20:07] LABS: ALT 13 U/L (4-34); AST 18 U/L (14-36); African American GFR (CKD) >90 (>60 ml/min/1.73 sqM); Albumin 4.2 g/dL (3.5-5.0); Alkaline Phosphatase 32 U/L (38-126); Anion Gap 8 mmol/L; Blood Urea Nitrogen 12 mg/dL (7-17); Calcium 9.3 mg/dL (8.4-10.2); Carbon Dioxide 23 mmol/L (22-30); Chloride 109 mmol/L (98-107); Glucose 86 mg/dL (74-99); Non-African American GFR(CKD) >90 (>60 ml/min/1.73 sqM); Potassium 4.1 mmol/L (3.5-5.1); Sodium 140 mmol/L (137-145); Total Bilirubin 0.5 mg/dL (0.2-1.3); Total Protein 6.4 g/dL (6.3-8.2)
[2023-10-17 20:08] LABS: Basophils % (A) 0 %; Eosinophils % (A) 1 %; HCT 25.3 % (34.0-46.0); Lymphocytes % (A) 30 %; MCH 31.8 pg (25.0-35.0); MCHC 33.6 g/dL (31.0-37.0); MCV 94.7 fL (80.0-100.0); Mean Platelet Volume 8.3; Monocytes # (A) 0.2 k/uL (0-1.0); Monocytes % (A) 3 %; Neutrophils # (A) 4.2 k/uL (1.3-7.7); Neutrophils % (A) 65 %; Platelet Count 191 k/uL (150-450); RBC 2.67 m/uL (3.80-5.40); RDW 11.6 % (11.5-15.5); WBC 6.5 k/uL (3.8-10.6)
[2023-10-17 20:24] LABS: HCG,Quantitative Serum 2032.3 mIU/mL
[2023-10-17 20:33] LABS: HGB 8.5 gm/dL (11.4-16.0)
--- NOTE | 2023-10-17 21:45 | CT ---
INDICATION: Patient age:Female; 38 years old; Reason for study: Abdominal pain status post dilatation and curettage for miscarriage completed the . COMPARISON: Obstetric ultrasound 10/11/2023. TECHNIQUE: Standard CT of the abdomen and pelvis following the administration of 100 cc of Isovue 3 00 IV contrast material. Coronal and sagittal reformats were performed. One or more CT dose reduction strategies were utilized during this examination. Total DLP administered was 499.4 mGycm. FINDINGS: LOWER CHEST: Unremarkable ABDOMEN LIVER: Trace periportal edema may relate to patient's hydration status. The liver parenchyma is withi n normal limits otherwise. GALLBLADDER AND BILE DUCTS: Unremarkable. PANCREAS: Unremarkable. SPLEEN: Unremarkable. ADRENAL GLANDS: Unremarkable. KIDNEYS AND URETERS: No evidence of hydronephrosis or renal calculus. The ureters are unremarkable. PELVIS URINARY BLADDER: Incompletely distended but grossly unremarkable. REPRODUCTIVE: Gravid changes of the uterus present. There is a suggested defect along the anterior as pect of the uterus. ABDOMEN & PELVIS STOMACH AND BOWEL: Stomach is grossly unremarkable. Small bowel is of normal caliber. There is modera te stool burden within the colon. No evidence of bowel obstruction. PERITONEUM: There is a moderate complex free fluid seen throughout the pelvis and portions of the abd omen most notably within the paracolic gutters no discrete foci of pneumoperitoneum appreciated. VASCULATURE: No aneurysmal changes. MUSCULOSKELETAL: No acute osseous abnormalities LYMPH NODES: Unremarkable. SOFT TISSUE/ABDOMINAL WALL: Unremarkable IMPRESSION: Moderate volume hemoperitoneum with findings possibly related to perforation of the uterus secondary to recent intervention. No discrete pneumoperitoneum. Critical findings called to and read back by Dr. Portillo by Dr. Frank Tomas over the phone on 2023 9:41 PM.
[2023-10-17] MEDS ORDERED: NALOXONE 0.4 MG/ML 1 ML VIAL IV PRN (22:07)
[2023-10-17] MEDS ORDERED: ONDANSETRON 4 MG/2 ML VIAL IVP PRN (22:07)
[2023-10-17] MEDS: SODIUM CHLORIDE 0.9% 1,000 ML IV SCH (22:25)
[2023-10-17] MEDS ORDERED: LORazepam 2 MG/ML INJ IV PRN (22:31)
--- NOTE | 2023-10-18 02:52 | P.CNPUL ---
History of Present Illness Consult date: 10/18/23 Requesting physician: Herrera Christian Reason for consult: other (Hemoperitoneum; ICU management) Chief complaint: Abdominal pain History of present illness: Patient is a 38-year-old woman with past medical history significant for recent D&C due to demise performed at outside facility yesterday. She has had a complicated obstetric history. According to the , [id number]. Previous controls design engineer was Dr. Hart. She does have 2 healthy children at home. She does not speak Portuguese. Her is translating. Was previously evaluated in [facility] on ER October 10, underwent ultrasound which demonstrated intrauterine gestation without cardiac activity, compatible with demise. Apparently, patient had a D&C done yesterday at [facility]. No complications immediately reported. While at home she was having issues with abdominal pain and abdominal bloating. A small amount of vaginal bleeding. She also felt lightheaded. Her brought her to the emergency department for evaluation. It was noted that she had a 3 g drop in her hemoglobin levels. Abdominal and pelvis CT demonstrated a moderate volume hemoperitoneum, possibly related to perforation of the uterus given patient's recent intervention. No discrete pneumoperitoneum. Dr. Hart has agreed to admit this patient for observation and possible surgical intervention. I did speak to the ER physician, felt the patient would be best monitored in the intensive care unit for now. She is currently receiving 1 unit of PRBCs. Also received 1 L normal saline bolus in the emergency department. Normal saline is now infusing at 75 mL/h. Not requiring any vasopressor support. She is in the intensive care unit in no acute distress. She is lying on her right lateral side. is at bedside. No significant vaginal bleeding. Suprapubic tenderness with palpation but overall soft abdomen. No ecchymosis. Vital signs currently with a blood pressure of 101/62 mmHg, heart rate 73 bpm, SpO2 98% on room air, respiratory rate is controlled. CBC: WBC count 6.5, hemoglobin 8.5 g/dL, hematocrit 25.3, platelets 191. No coags available. CMP unremarkable. Quantitative hCG 2031. Hemodynamics are currently stable. Review of Systems REVIEW OF SYSTEMS: CONSTITUTIONAL: Denies any recent significant weight loss or weight gain. EYES: Denies change in vision. EARS, NOSE, MOUTH, THROAT: Denies headaches, denies sore throat. CARDIOVASCULAR: Denies chest pain, palpitations or syncopal episodes. RESPIRATORY: Denies shortness of breath, cough, congestion or hemoptysis. GASTROINTESTINAL: Denies change in appetite, nausea and vomiting, or diarrhea. GENITOURINARY: Denies hematuria, denies infections. MUSKULOSKELETAL: Denies pain, denies swelling. INTEGUMENTARY: Denies rash, denies eczema. NEUROLOGICAL: Denies recent memory loss, no recent seizure activity. PSYCHIATRIC: Denies anxiety, denies depression. HEMATOLOGIC/LYMPHATIC: Denies anemia, denies enlarged lymph node Past Medical History Past Medical History: Hyperlipidemia Additional Past Medical History / Comment(s): Hx Spontaneous X3. History of Any Multi-Drug Resistant Organisms: None Reported Past Surgical History: Section Past Anesthesia/Blood Transfusion Reactions: No Reported Reaction Past Psychological History: No Psychological Hx Reported Smoking Status: Never smoker Past Alcohol Use History: None Reported Past Drug Use History: None Reported - Past Family History Mother Family Medical History: No Reported History Medications and Allergies Home Medications Medication Instructions Recorded Confirmed Type Ibuprofen [Motrin] 600 mg PO Q6HR PRN #30 tab 09/21/22 Rx Allergies Allergy/AdvReac Type Severity Reaction Status Date / Time No Known Allergies Allergy Verified 10/17/23 18:18 Physical Exam Vitals: Vital Signs Temp Pulse Resp BP Pulse Ox 10/18/23 02:00 67 15 91/52 97 10/18/23 01:00 73 14 101/62 98 10/18/23 00:30 98.3 F 78 16 101/62 99 10/18/23 00:10 98.5 F 75 15 94/53 99 10/18/23 00:00 98.3 F 77 17 99/71 100 10/17/23 23:50 79 13 100/60 100 10/17/23 23:40 98.3 F 80 15 100/60 10/17/23 23:27 84 18 100/63 100 10/17/23 23:00 106/65 10/17/23 22:25 109/63 100 10/17/23 22:07 86 18 108/68 99 10/17/23 18:15 98 F 74 20 97/60 99 Intake and Output 10/17/23 10/17/23 10/18/23 14:59 22:59 06:59 Intake Total 150 Output Total 325 Balance -175 Intake: IV 150 Sodium Chloride 0.9% 1, 150 000 ml @ 75 mls/hr IV . [id number] [facility] Rx#:[id number] Blood Product 0 Rc As-1 Unit 0 [id number] Output: Urine 325 Other: Weight 49.895 kg 55 kg GENERAL EXAM: Alert, 38-year-old female, laying on her right side, fairly comfortable in no apparent distress. HEAD: Normocephalic and atraumatic EYES: Normal reaction of pupils, equal size. NOSE: Clear with pink turbinates. THROAT: No erythema or exudates. NECK: No masses, no JVD. CHEST: No chest wall deformity. LUNGS: Equal air entry with no crackles, wheeze, rhonchi or dullness. No conversational dyspnea or accessory muscle use.. CVS: S1 and S2 normal with no audible murmur, regular rhythm. No extra heart sounds ABDOMEN: Abdomen is flat, nondistended, active bowel sounds, no hepatosplenomegaly, no guarding or rigidity, SPINE: No scoliosis or deformity. SKIN: No rashes. No abdominal bruising or flank bruising CENTRAL NERVOUS SYSTEM: No focal deficits, tone is normal in all 4 extremities. EXTREMITIES: There is no peripheral edema, clubbing, or cyanosis. Peripheral pulses are intact. Results - Laboratory Findings CBC and BMP: 10/17/23 19:35 10/17/23 19:35 Abnormal lab findings: Abnormal Labs 10/17/23 10/17/23 10/17/23 19:35 19:35 19:35 RBC 2.67 L Hgb 8.5 L D Hct 25.3 L Chloride 109 H Creatinine 0.51 L Alkaline Phosphatase 32 L Urine Blood Large H Ur Leukocyte Esterase Trace H Urine Bacteria Occasional H Crossmatch 10/17/23 21:49 RBC Hgb Hct Chloride Creatinine Alkaline Phosphatase Urine Blood Ur Leukocyte Esterase Urine Bacteria Crossmatch See Detail - Diagnostic Findings Chest x-ray: image reviewed Assessment and Plan Assessment: Hemoperitoneum, suspect secondary to traumatic D&C, Abdominal and pelvis CT demonstrated a moderate volume hemoperitoneum, possibly related to perforation of the uterus given patient's recent surgical history. No discrete pneumoperitoneum. Dr. Hart has agreed to admit this patient for possible surgical intervention. Suprapubic pain, secondary to above Acute blood loss anemia, currently receiving 1 unit PRBCs Recent history of demise, subsequently undergoing dilation & curettage with evacuation, performed at outside facility A8, according to Plan: Dr. Hart has agreed to admit this patient for possible surgical intervention. Hemodynamics are currently stable She is currently receiving 1 unit of PRBCs Repeat labs including H&H and coags Not requiring any vasopressor support at the moment Patient will be best monitored in the intensive care unit for now We will continue to follow the patient while in the intensive care unit I have personally seen and examined the patient, performed the documentation and the assessment and plan as written. Number of minutes spent on the visit:20 Time with Patient: Greater than 30
[2023-10-18 03:36] LABS: HCT 25.2 % (34.0-46.0); HGB 8.5 gm/dL (11.4-16.0); MCH 31.4 pg (25.0-35.0); MCHC 33.9 g/dL (31.0-37.0); MCV 92.7 fL (80.0-100.0); Mean Platelet Volume 8.3; Platelet Count 136 k/uL (150-450); RBC 2.72 m/uL (3.80-5.40); RDW 12.7 % (11.5-15.5); WBC 5.1 k/uL (3.8-10.6)
[2023-10-18 03:41] LABS: INR 1.1 (<1.2); Partial Thromboplastin Time 25.2 sec (22.0-30.0); Prothrombin Time 11.5 sec (10.0-12.5)
--- NOTE | 2023-10-18 03:47 | P.HPOB ---
History of Present Illness H&P Date: 10/18/23 Chief Complaint: hemoperitoneum 38 year old had a suction D&C at another facility on 10/16/23. She went home after the procedure and was ok at first. She then started to have abdominal pain and her brought her to the ER. She was in the ER a few days ago when her hemoglobin was 12. On admission to ER this time it was 8.9. Her BP was low but patient was not complaining of anemia symptoms. She denies shortness of breath, chest pain, N/V, or fever/chills. She is having mild vaginal bleeding as expected. CT showed moderate amount of blood in her pelvis without pnemoperitoneum. There seems to be an anterior defect in the uterus. This indicates likely perforation of uterus during the suction D&C. Review of Systems All systems: negative Constitutional: Denies chills, Denies fever Eyes: denies blurred vision, denies pain Ears, nose, mouth and throat: Denies headache, Denies sore throat Cardiovascular: Denies chest pain, Denies shortness of breath Respiratory: Denies cough Gastrointestinal: Reports abdominal pain, Denies diarrhea, Denies nausea, Denies vomiting Genitourinary: Reports pelvic pain, Denies dysuria, Denies hematuria Musculoskeletal: Denies myalgias Integumentary: Denies pruritus, Denies rash Neurological: Denies numbness, Denies weakness Psychiatric: Denies anxiety, Denies depression Endocrine: Denies fatigue, Denies weight change Past Medical History Past Medical History: Hyperlipidemia Additional Past Medical History / Comment(s): Hx Spontaneous X8. History of Any Multi-Drug Resistant Organisms: None Reported Past Surgical History: Section Past Anesthesia/Blood Transfusion Reactions: No Reported Reaction - Sexual Orientation/Gender Identity What was your sex assigned at ?: Female Preferred Pronoun: She/Her/Hers Do you identify as transgender: No How would you describe your gender identity?: Woman Do you think of your sexual orientation as: Straight/Heterosexual Are you partners: Male Sexually Active: Yes Contraceptive Type: None Past Psychological History: No Psychological Hx Reported Smoking Status: Never smoker Past Alcohol Use History: None Reported Past Drug Use History: None Reported - Past Family History Mother Family Medical History: No Reported History Medications and Allergies Home Medications Medication Instructions Recorded Confirmed Type Ibuprofen [Motrin] 600 mg PO Q6HR PRN #30 tab 09/21/22 Rx Allergies Allergy/AdvReac Type Severity Reaction Status Date / Time No Known Allergies Allergy Verified 10/17/23 18:18 Exam Osteopathic Statement: *. No significant issues noted on an osteopathic structural exam other than those noted in the History and Physical/Consult. Vital Signs Temp Pulse Resp BP Pulse Ox 10/18/23 02:00 67 15 91/52 97 10/18/23 01:00 73 14 101/62 98 10/18/23 00:30 98.3 F 78 16 101/62 99 10/18/23 00:10 98.5 F 75 15 94/53 99 10/18/23 00:00 98.3 F 77 17 99/71 100 10/17/23 23:50 79 13 100/60 100 10/17/23 23:40 98.3 F 80 15 100/60 10/17/23 23:27 84 18 100/63 100 10/17/23 23:00 106/65 10/17/23 22:25 109/63 100 10/17/23 22:07 86 18 108/68 99 10/17/23 18:15 98 F 74 20 97/60 99 Intake and Output 10/17/23 10/17/23 10/18/23 14:59 22:59 06:59 Intake Total 150 Output Total 325 Balance -175 Intake: IV 150 Sodium Chloride 0.9% 1, 150 000 ml @ 75 mls/hr IV . [id number] [facility] Rx#:[id number] Blood Product 0 Rc As-1 Unit 0 [id number] Output: Urine 325 Other: Weight 49.895 kg 55 kg focused exam on abdomen: nondistended, tender to palpation below umbilicus, suprapubically and in the BL lower quadrants. There is guarding with exam but rebound or rigidity and the abdomen does not appear acute. PT is resting comfortably in bed and had one dose of tylenol in ER, does not want anything else for pain. Results Result Diagrams: 10/17/23 19:35 10/17/23 19:35 Abnormal Lab Results - Last 24 Hours (Table) 10/17/23 10/17/23 10/17/23 Range/Units 19:35 19:35 19:35 RBC 2.67 L (3.80-5.40) m/uL Hgb 8.5 L D (11.4-16.0) gm/dL Hct 25.3 L (34.0-46.0) % Chloride 109 H (98-107) mmol/L Creatinine 0.51 L (0.52-1.04) mg/dL Alkaline Phosphatase 32 L (38-126) U/L Urine Blood Large H (Negative) Ur Leukocyte Esterase Trace H (Negative) Urine Bacteria Occasional H (None) /hpf Crossmatch 10/17/23 Range/Units 21:49 RBC (3.80-5.40) m/uL Hgb (11.4-16.0) gm/dL Hct (34.0-46.0) % Chloride (98-107) mmol/L Creatinine (0.52-1.04) mg/dL Alkaline Phosphatase (38-126) U/L Urine Blood (Negative) Ur Leukocyte Esterase (Negative) Urine Bacteria (None) /hpf Crossmatch See Detail Assessment and Plan (1) Status post D&C Current Visit: Yes Status: Acute Code(s): Z98.890 - OTHER SPECIFIED POSTPROCEDURAL STATES SNOMED Code(s): 058876937 (2) Anemia Current Visit: Yes Status: Acute Code(s): D64.9 - ANEMIA, UNSPECIFIED SNOMED Code(s): 037486588 (3) Hemoperitoneum Current Visit: Yes Status: Acute Code(s): K66.1 - HEMOPERITONEUM SNOMED Code(s): 550403303 Plan: 1. ER physician ordered 1 unit of PRBCs, will see what the hgb is now (only 30 minutes after unit is given) 2. serial abdominal exams 3. monitor closely 4. I discussed with the patient, through her sister interpreting, that she has this hemoperitoneum likely from a hole in her uterus. I believe the bleeding has stopped just from her clinical exam. We discussed the possibility of requiring laparoscopic surgery to repair the hole and/or remove hemoperitoneum. If the bleeding has stopped and her symptoms do not worsen, she may be able to avoid surgical intervention. Uterine defects after a D&C usually heal on their own.
[2023-10-18 06:48] LABS: HCT 24.4 % (34.0-46.0); MCH 32.1 pg (25.0-35.0); MCHC 34.8 g/dL (31.0-37.0); MCV 92.3 fL (80.0-100.0); Mean Platelet Volume 8.5; Platelet Count 130 k/uL (150-450); RBC 2.65 m/uL (3.80-5.40); RDW 12.8 % (11.5-15.5); WBC 5.4 k/uL (3.8-10.6)
[2023-10-18 08:54] LABS: HGB 8.5 gm/dL (11.4-16.0)
[2023-10-18] MEDS: ACETAMINOPHEN TAB 325 MG TAB PO PRN (10:27)
[2023-10-18 11:59] LABS: Basophils % (A) 0 %; Eosinophils % (A) 1 %; HCT 28.7 % (34.0-46.0); HGB 9.8 gm/dL (11.4-16.0); Lymphocytes # (A) 1.1 k/uL (1.0-4.8); Lymphocytes % (A) 26 %; MCH 31.1 pg (25.0-35.0); MCHC 34.2 g/dL (31.0-37.0); MCV 90.8 fL (80.0-100.0); Mean Platelet Volume 7.7; Monocytes # (A) 0.2 k/uL (0-1.0); Monocytes % (A) 4 %; Neutrophils # (A) 2.8 k/uL (1.3-7.7); Neutrophils % (A) 67 %; Platelet Count 143 k/uL (150-450); RBC 3.16 m/uL (3.80-5.40); RDW 13.3 % (11.5-15.5); WBC 4.1 k/uL (3.8-10.6)
[2023-10-19 02:27] VITALS: RESP 18
[2023-10-19 08:03] VITALS: BP 101/63; PULSE 73; TEMP 99.1
[2023-10-19 08:19] LABS: HCT 29.1 % (34.0-46.0); HGB 9.9 gm/dL (11.4-16.0); MCH 30.6 pg (25.0-35.0); MCHC 34.1 g/dL (31.0-37.0); MCV 89.8 fL (80.0-100.0); Mean Platelet Volume 7.8; Platelet Count 155 k/uL (150-450); RBC 3.24 m/uL (3.80-5.40); RDW 13.3 % (11.5-15.5); WBC 6.7 k/uL (3.8-10.6)
--- NOTE | 2023-10-19 14:11 | P.PN ---
Subjective Progress Note Date: 10/19/23 Patient is a 38-year-old woman with past medical history significant for recent D&C due to demise performed at outside facility yesterday. She has had a complicated obstetric history. According to the , [id number]. 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 She does have 2 healthy children at home. She does not speak Serbian. Her is translating. Was previously evaluated in [facility] on ER October 10, underwent ultrasound which demonstrated intrauterine gestation without cardiac activity, compatible with demise. Apparently, patient had a D&C done yesterday at [facility]. No complications immediately reported. While at home she was having issues with abdominal pain and abdominal bloating. A small amount of vaginal bleeding. She also felt lightheaded. Her brought her to the emergency department for evaluation. It was noted that she had a 3 g drop in her hemoglobin levels. Abdominal and pelvis CT demonstrated a moderate volume hemoperitoneum, possibly related to perforation of the uterus given patient's recent intervention. No discrete pneumoperitoneum. Dr. Hart has agreed to admit this patient for observation and possible surgical intervention. I did speak to the ER physician, felt the patient would be best monitored in the intensive care unit for now. She is currently receiving 1 unit of PRBCs. Also received 1 L normal saline bolus in the emergency department. Normal saline is now infusing at 75 mL/h. Not requiring any vasopressor support. She is in the intensive care unit in no acute distress. She is lying on her right lateral side. is at bedside. No significant vaginal bleeding. Suprapubic tenderness with palpation but overall soft abdomen. No ecchymosis. Vital signs currently with a blood pressure of 101/62 mmHg, heart rate 73 bpm, SpO2 98% on room air, respiratory rate is controlled. CBC: WBC count 6.5, hemoglobin 8.5 g/dL, hematocrit 25.3, platelets 191. No coags available. CMP unremarkable. Quantitative hCG 2031. Hemodynamics are currently stable. The patient is seen today 10/19/2023 in follow-up on the OB unit. She is currently resting comfortably in bed. Awake and alert in no acute distress. Maintaining O2 saturations in the 90s on room air. hemoglobin 9.9. White count 6.7. platelets 155. Objective - Vital Signs Vital signs: Vital Signs Temp 99.1 F 10/19/23 07:57 Pulse 73 10/19/23 07:57 Resp 18 10/19/23 07:57 BP 101/63 10/19/23 07:57 Pulse Ox 97 10/19/23 07:57 FiO2 Intake & Output 10/18/23 10/19/23 10/19/23 18:59 06:59 18:59 Intake Total 1060 Output Total 750 Balance 310 Intake: IV 750 Sodium Chloride 0.9% 1, 750 000 ml @ 75 mls/hr IV . [id number] [facility] Rx#:[id number] Blood Product 310 Rc As-1 Unit 310 [id number] Output: Urine 750 Other: Voiding Method Toilet # Voids 1 2 - Exam GENERAL EXAM: Alert, active, 38-year-old female, on room air,comfortable in no apparent distress. HEAD: Normocephalic. EYES: Normal reaction of pupils, equal size. NOSE: Clear with pink turbinates. THROAT: No erythema or exudates. NECK: No masses, no JVD. CHEST: No chest wall deformity. LUNGS: Equal air entry with no crackles, wheeze, rhonchi or dullness. CVS: S1 and S2 normal with no audible murmur, regular rhythm. ABDOMEN: tender to palpation. No hepatosplenomegaly, normal bowel sounds, no guarding or rigidity. SPINE: No scoliosis or deformity SKIN: No rashes CENTRAL NERVOUS SYSTEM: No focal deficits, tone is normal in all 4 extremities. EXTREMITIES: There is no peripheral edema. No clubbing, no cyanosis. Periphera l pulses are intact. - Labs CBC & Chem 7: 10/19/23 07:59 10/17/23 19:35 Labs: Abnormal Lab Results - Last 24 Hours (Table) 10/19/23 Range/Units 07:59 RBC 3.24 L (3.80-5.40) m/uL Hgb 9.9 L (11.4-16.0) gm/dL Hct 29.1 L (34.0-46.0) % Assessment and Plan Assessment: Hemoperitoneum, suspect secondary to traumatic D&C, Abdominal and pelvis CT demonstrated a moderate volume hemoperitoneum, possibly related to perforation of the uterus given patient's recent surgical history. No discrete pneumoperitoneum. Dr. Hart has agreed to admit this patient for possible surgical intervention. Suprapubic pain, secondary to above Acute blood loss anemia, currently receiving 1 unit PRBCs Recent history of demise, subsequently undergoing dilation & curettage wi th evacuation, performed at outside facility A8, according to Plan: The patient was seen and evaluated Labs and medications reviewed Stable from the pulmonary standpoint Home once cleared by [employer] MANAGER I have personally seen and examined the patient, performed the documentation and the assessment and plan as written. Number of minutes spent on the visit: 10
--- NOTE | 2023-10-20 08:15 | P.DS ---
Providers Date of admission: 10/17/23 22:33 Expected date of discharge: 10/19/23 Attending physician: Tsering Hart Consults: 10/17/23 22:31 Consult Physician Routine Consulting Provider: Gustavo Houser Consult Reason/Comments: intraperitonealhemorrhaf Do you want consulting provider notified?: Yes Primary care physician: Choco Isbell - Discharge Diagnosis(es) (1) Status post D&C Status: Acute (2) Anemia Acute blood loss anemia Status: Acute (3) Hemoperitoneum Status: Acute Hospital Course: This 38-year-old Presented to the hospital with hemoperitoneum after a suction D&C at a tertiary facility. The computed tomography scan showed she had an anterior defect in the uterus so likely's uterus was perforated during the D&C and she had some blood loss into her abdomen. She had some tenderness in her abdomen but no rigidity no rebound and it was not an acute abdomen. Her hemoglobin remained stable at 8.5 even after a unit of blood. She got one more unit of blood which brought her hemoglobin up to 9.8. Her platelets did decrease and then increased back to 160. I did serial abdominal exams and utilize nursing staff to do the same. The bleeding seemed to have stopped, and the uterine defect will heal on its own. She was kept for over 24 hours in the hospital under observation. The patient was discharged home under stable condition taking only Tylenol for pain. She is tolerating a regular diet and walking around the room without dizziness. She's passing flatus and urinating normally. We discussed that she needs to return to hospital if she starts getting lightheaded dizzy or her pain increases severely. At that her follow-up with me in a few weeks. Patient Condition at Discharge: Stable Plan - Discharge Summary New Discharge Prescriptions: No Action No Known Home Medications Discharge Medication List No Known Home Medications 10/18/23 [History] Follow up Appointment(s)/Referral(s): Tsering Hart DO [Doctor of Osteopathic Medicine] - 1 Week Choco Isbell MD [Primary Care Provider] - 1-2 days Discharge Disposition: HOME SELF-CARE
== END 2023-10-19 10:56 | disposition home or self-care (01) | DRG 813 ==
LOC: EC 18:14 → 2SICU 22:33 → 4FBP 10-18 17:52
PROVIDERS: ADMIT Obstetrics & Gynecology; ATTEND Obstetrics & Gynecology
PROC: 30233N1 Transfusion of Nonautologous Red Blood Cells into Peripheral Vein, Percutaneous Approach (ICD-10-PCS; principal; 2023-10-18)
DX: N99.71 Accidental puncture and laceration of a genitourinary system organ or structure during a genitourinary system procedure (principal); K66.1 Hemoperitoneum; O90.81 Anemia of the puerperium; D62 Acute posthemorrhagic anemia; O9A.23 Injury, poisoning and certain other consequences of external causes complicating the puerperium; Y84.8 Other medical procedures as the cause of abnormal reaction of the patient, or of later complication, without mention of misadventure at the time of the procedure; E78.5 Hyperlipidemia, unspecified; Z87.59 Personal history of other complications of pregnancy, childbirth and the puerperium
CPT/HCPCS: 36415; 74177; 80053; 81001; 84702; 85025; 85027; 85384; 85610; 85730; 86850; 86900; 86901; 86920; 96360; 96361; 99285

== ENCOUNTER → 2024-01-14 | Outpatient (CLI) | payer OTHER ==
[2024-01-14 09:18] LABS: Creatinine,Urine Random 236.4 mg/dL; Protein/Creatinine Ratio,Urine 0.021
[2024-01-14 10:13] LABS: Basophils # (A) 0.03 X 10*3/uL (0.00-0.10); Basophils % (A) 0.6 %; Eosinophils # (A) 0.09 X 10*3/uL (0.04-0.35); Eosinophils % (A) 1.9 %; HCT 37.1 % (37.2-46.3); HGB 12.3 g/dL (12.0-15.0); Lymphocytes # (A) 1.81 X 10*3/uL (0.90-5.00); Lymphocytes % (A) 37.3 %; MCH 30.4 pg (27.0-32.0); MCHC 33.2 g/dL (32.0-37.0); MCV 91.8 FL (80.0-97.0); Mean Platelet Volume 10.3 FL (9.5-12.2); Monocytes # (A) 0.31 X 10*3/uL (0.20-1.00); Monocytes % (A) 6.4 %; NRBC Per 100 WBC 0 X 10*3/uL (0.00-0.01); Neutrophils % (A) 53.6 %; Platelet Count 251 X 10*3/uL (140-440); RBC 4.04 X 10*6/uL (4.10-5.20); RDW 11.7 % (11.5-14.5); WBC 4.85 X 10*3/uL (4.50-10.00)
[2024-01-14 10:40] LABS: % Iron Saturation 28.49 (12.00-45.00); ALT 15 U/L (8-44); AST 18 U/L (13-35); Albumin 4.5 g/dL (3.8-4.9); Albumin/Globulin Ratio 1.88 Ratio (1.60-3.17); Alkaline Phosphatase 43 U/L (41-126); Blood Urea Nitrogen 14.8 mg/dL (9.0-27.0); C Reactive Protein <0.30 mg/dL (0.00-0.80); Calcium 9.5 mg/dL (8.7-10.3); Carbon Dioxide 26.3 mmol/L (21.6-31.8); Chloride 104 mmol/L (96-109); Chol/HDL Ratio 3.14 Ratio; Creatine Kinase 51 U/L (26-186); Globulin 2.4 g/dL (1.6-3.3); Glucose 90 mg/dL (70-110); Iron 96 UG/DL (50-170); LDL Cholesterol,Calculated 149.2 mg/dL (0.0-131.0); Magnesium 1.9 mg/dL (1.5-2.4); Phosphorus 3.2 mg/dL (2.4-5.1); Potassium 4.3 mmol/L (3.5-5.5); Rheumatoid Factor, Qnt <15 IU/mL (0-15); Sodium 138 mmol/L (135-145); Total Bilirubin 0.7 mg/dL (0.3-1.2); Total Iron Binding Capacity 337 UG/DL (228-460); Total Protein 6.9 g/dL (6.2-8.2); VLDL Calculation 8.98 mg/dL (5.00-40.00)
[2024-01-14 10:41] LABS: T4, Free (Free Thyroxine) 1.09 ng/dL (0.80-1.80)
[2024-01-14 11:18] LABS: Thyroid Peroxidase Antibodies 12.1 U/mL (0.0-33.0)
[2024-01-14 12:39] LABS: Erythrocyte Sedimentation Rate 5 mm/Hr (0-20)
[2024-01-14 12:58] LABS: Anti-Smith Ab Interp Negative (Negative); DNA Double-Stranded Negative (Negative)
[2024-01-14 15:32] LABS: Appearance,Urine Cloudy (Clear); Bilirubin,Urine Negative (Negative); Blood,Urine Small (Negative); Color,Urine Yellow (Yellow); Ketones,Urine Negative (Negative); Nitrite,Urine Negative (Negative); PH, Urine 5.5; Urobilinogen,Urine 0.2 E.U./DL
[2024-01-14 16:03] LABS: Bacteria,Urine 1+ (None Seen); Calcium Oxalate Crystals,Urine Present (None Seen)
[2024-01-14 16:59] LABS: Cyclic Citrull Pep IgG Unit <1.5 U/mL (<=3.9); Cyclic Citrullinated Pep IgG Negative
[2024-01-14 21:12] LABS: Microalbumin Creatinine Ratio <5 mg/g Cr (0-30)
[2024-01-15 14:31] LABS: C-ANCA <1:20 Titer (<1:20)
== END | disposition home or self-care (01) ==
LOC: LABWHC1 07:42
PROVIDERS: ATTEND Internal Medicine
CPT/HCPCS: 36415; 80053; 80061; 81001; 82043; 82306; 82533; 82550; 82570; 82728; 83036; 83540; 83550; 83735; 84100; 84156; 84439; 84443; 84481; 85025; 85652; 86038; 86140; 86200; 86225; 86235; 86255; 86376; 86431; 86800; 87086

== ENCOUNTER → 2024-10-22 | Outpatient (CLI) | payer OTHER ==
[2024-10-22 19:42] LABS: Anion Gap 9.50 mmol/L (4.00-12.00); BUN/Creat Ratio 23.80 Ratio (12.00-20.00); Blood Urea Nitrogen 11.9 mg/dL (9.0-27.0); Calcium 8.9 mg/dL (8.7-10.3); Carbon Dioxide 23.5 mmol/L (21.6-31.8); Chloride 104 mmol/L (96-109); Glucose 88 mg/dL (70-110); Potassium 3.9 mmol/L (3.5-5.5); Sodium 137 mmol/L (135-145)
[2024-10-22 21:21] LABS: Cardiolipin Ab IgG Interp Negative (Negative); Cardiolipin Ab IgM Interp Negative (Negative)
[2024-10-23 13:08] LABS: APTT 44 Sec(s) (<43); APTT 1:1 Mix 40 Sec(s) (<43); Dilute Russell Viper Venom 31 Sec(s) (<44)
== END | disposition home or self-care (01) ==
LOC: LABWHC1 13:04
PROVIDERS: ATTEND Internal Medicine
DX: D68.59 Other primary thrombophilia (principal); N39.0 Urinary tract infection, site not specified; R31.9 Hematuria, unspecified
CPT/HCPCS: 36415; 80048; 81291; 83090; 85025; 85300; 85613; 85730; 86147